=== PATIENT | male | born 1945 | race African-American/Black ===

== ENCOUNTER 2017-05-03 20:00 | Inpatient (IN) | payer MEDICARE ==
--- NOTE | 2017-05-03 20:15 | ER Document Report ---
ED Fall <ALEXIS GUEVARA - Last Filed: 05/03/17 23:06> - General Mode of Arrival: Medic Information source: Patient, Relative - daughter ignacia at [phone] TRAVEL OUTSIDE OF THE [place] IN LAST 30 DAYS: No <EDGAR REINA - Last Filed: 05/04/17 00:30> - General Stated Complaint: FALL,BACK PAIN Time Seen by Provider: 05/03/17 20:14 Notes: 71-year-old male brought in by ambulance due to up to 10 falls since Saturday. I spoke at length with his daughter Ignacia because he has increasing, confusion, disorientation, altered mental status since Saturday. He was hospitalized at [facility] in March for rhabdomyolysis and confusion. The patient left AMA. His [facility] provider discharged him from his practice and he does not have a new doctor. The caregiver that has been going to the house several hours a day says that he has basically not gotten off the sofa and not eaten since Saturday. His daughter Nancy is driving from [place] and her phone number is [phone]. No known dementia. Past medical history is kidney stones, rheumatoid arthritis , peripheral neuropathy to hands and feet, diabetes, hypertension, DC, coronary stents, stage III colon cancer with partial colectomy, TIA and a small spot on the brain 8 or 9 years ago. he is oriented to his name and date of only and knows he is in the hospital, but does not know date, time. EMS had been out to his house several times since Saturday but he was refusing transport because he never wanted to go back to [facility]. ( EDGAR REINA) - Related data Allergies/Adverse Reactions: Penicillins Allergy (Verified 02/08/16 14:50) Home Medications: Current Home Medications Bupropion HCl [Bupropion HCl Sr] 150 mg PO Q12 05/03/17 [History] Carvedilol [Coreg 6.25 mg Tablet] 6.25 mg PO Q12 05/03/17 [History] Clopidogrel Bisulfate [Plavix 75 mg Tablet] 75 mg PO DAILY 05/03/17 [History] Duloxetine HCl [Cymbalta] 60 mg PO DAILY 05/03/17 [History] Gabapentin [Neurontin 300 mg Capsule] 900 mg PO Q8 05/03/17 [History] Hydralazine HCl [Apresoline 25 mg Tablet] 25 mg PO QPM 05/03/17 [History] Insulin Regular, Human [Humulin R (Pyxis) Insulin 100 Unit/ml 3Ml] 120 unit SUBCUT TID 05/03/17 [History] Irbesartan [Avapro] 300 mg PO DAILY 05/03/17 [History] Metformin HCl [Glucophage] 1,000 mg PO BIDBS 05/03/17 [History] Methotrexate Sodium [Methotrexate] 10 mg PO .QWEEKLY 05/03/17 [History] Pravastatin Sodium [Pravachol] 40 mg PO DAILY 05/03/17 [History] Spironolactone [Aldactone] 50 mg PO DAILY 05/03/17 [History] Tramadol HCl [Ultram 50 mg Tablet] 50 mg PO Q12HP PRN 05/03/17 [History] Trazodone HCl [Desyrel] 100 mg PO HSP PRN 05/03/17 [History] Past Medical History - General Information source: Patient, Relative - Social History Smoking Status: Never Smoker Frequency of alcohol use: None Drug Abuse: None Occupation: retired Lives with: Alone - with cats Family History: Reviewed & Not Pertinent - Past Medical History Cardiac Medical History: Reports: Hx Congestive Heart Failure, Hx Coronary Artery Disease, Hx Heart Attack, Hx Hypertension Endocrine Medical History: Reports: Hx Diabetes Mellitus Type 2 - Patient is unable to tell me which type of diabetes he has. Renal/ Medical History: Reports: Hx Kidney Stones Malignancy Medical History: Reports Hx Colorectal Cancer Musculoskeltal Medical History: Reports Hx Arthritis Psychiatric Medical History: Reports: Hx Depression Past Surgical History: Reports: Hx Bowel Surgery - bowel resection, Hx Cardiac Catheterization, Hx Cardiac Surgery - stents <EDGAR REINA - Last Filed: 05/04/17 00:30> Review of Systems - Review of Systems Constitutional: No symptoms reported EENT: No symptoms reported Cardiovascular: No symptoms reported Respiratory: No symptoms reported Gastrointestinal: No symptoms reported Genitourinary: No symptoms reported Male Genitourinary: No symptoms reported Musculoskeletal: No symptoms reported Skin: No symptoms reported Hematologic/Lymphatic: No symptoms reported Neurological/Psychological: See HPI <EDGAR REINA - Last Filed: 05/04/17 00:30> Physical Exam <ALEXIS GUEVARA - Last Filed: 05/03/17 23:06> - Vital signs Interpretation: Hypoxic - 4lpom nc pulse ox to 95% - General General appearance: Other - agitated, picking at things - HEENT Head: Normocephalic, Atraumatic Eyes: Normal Conjunctiva: Normal Pupils: PERRL Tympanic membrane: Normal Mucous membranes: Dry Pharynx: Normal Neck: Supple - non tender - Respiratory Respiratory status: No respiratory distress Chest status: Nontender Breath sounds: Rales - fine lewis bases Chest palpation: Normal - Cardiovascular Rhythm: Regular Heart sounds: Normal auscultation Murmur: No - Abdominal Inspection: Normal Distension: No distension Bowel sounds: Normal Tenderness: Nontender. No: Tender Organomegaly: No organomegaly - Back Back: Normal, Nontender - Extremities General upper extremity: Normal inspection, Nontender, Normal color, Normal ROM , Normal temperature General lower extremity: Normal inspection, Nontender, Normal color, Normal ROM , Normal temperature, Normal weight bearing. No: Gabriella's sign Elbow: Abrasion - with bruise left olecranon Knee: Other - anterior knees abrasions - Neurological Neuro grossly intact: Yes Cognition: Inattentive Orientation: Disoriented to place, Disoriented to time, Disoriented to events Gentry Coma Scale Eye Opening: Spontaneous Kaiser Coma Scale Verbal: Inappropriate - says his is gabapentin Gentry Coma Scale Motor: Obeys Commands Gentry Coma Scale Total: 13 Speech: Normal Motor strength normal: LUE, RUE, LLE, RLE Additional motor exam normals: Equal dye weigher Sensory: Normal - Psychological Associated symptoms: Agitated - Skin Skin Temperature: Warm Skin Moisture: Dry Skin Color: Normal <EDGAR REINA - Last Filed: 05/04/17 00:30> - Vital signs Vitals: Resp 22 H 05/03/17 20:25 - Neurological Notes: takes a while to follow commands (DEGAR REINA) - Skin Notes: see above (EDGAR REINA) Course - Laboratory Result Diagrams: 05/03/17 20:25 05/03/17 20:25 <ALEXIS GUEVARA - Last Filed: 05/03/17 23:06> - Laboratory Result Diagrams: 05/03/17 20:25 05/03/17 20:25 <EDGAR REINA - Last Filed: 05/04/17 00:30> - Re-evaluation Re-evalutation: 05/03/17 23:09 dr keenan will admit to IMCU admission. pulse ox 94% with 4lpm NC, hypoxic on abg , renal insufficiency dehydration, hyperglycemic (EDGAR REINA) - Vital Signs Vital signs: Temp Pulse Resp BP Pulse Ox 20 156/75 H 95 05/03/17 23:01 05/03/17 22:50 05/03/17 23:01 - Laboratory Laboratory results interpreted by me: 05/03/17 05/03/17 05/03/17 20:25 20:25 20:25 RDW 16.3 H Plt Count 121 L Lymphocytes % (Manual) 7 L Carbonic Acid ABG pCO2 ABG pO2 ABG HCO3 ABG Total CO2 ABG O2 Saturation Sodium 128.7 L Carbon Dioxide 19 L BUN 51 H Creatinine 1.47 H Est GFR ( Amer) 57 L Est GFR (Non-Af Amer) 47 L Glucose 343 H Calcium 8.2 L Creatine Kinase 448 H CK-MB (CK-2) 13.20 H Total Protein 6.0 L Albumin 3.3 L Urine Glucose (UA) Urine Ketones Urine Blood 05/03/17 05/03/17 20:25 21:26 RDW Plt Count Lymphocytes % (Manual) Carbonic Acid 0.95 L ABG pCO2 31.5 L ABG pO2 63.6 L ABG HCO3 19.9 L ABG Total CO2 20.8 L ABG O2 Saturation 93.0 L Sodium Carbon Dioxide BUN Creatinine Est GFR ( Amer) Est GFR (Non-Af Amer) Glucose Calcium Creatine Kinase CK-MB (CK-2) Total Protein Albumin Urine Glucose (UA) >=500 H Urine Ketones TRACE H Urine Blood MODERATE H Discharge <ALEXIS GUEVARA - Last Filed: 05/03/17 23:06> - Discharge Admitting Provider: Hospitalist Unit Admitted: IMCU <EDGAR REINA - Last Filed: 05/04/17 00:30> - Discharge Clinical Impression: Acute renal insufficiency, Dehydration, hyperglycemic, Hypoxia, abrasions to lewis knees, left elbow Altered mental status Qualifiers: Altered mental status type: unspecified Qualified Code(s): R41.82 - Altered mental status, unspecified Disposition: ADMITTED INPATIENT
[2017-05-03] MEDS ORDERED: NORMAL SALINE 1000 ML 1,000 ML IV ONE ×3 (20:42→23:19)
[2017-05-03] MEDS ORDERED: NORMAL SALINE 1000 ML 500 ML IV ONE (20:42)
[2017-05-03 21:02] LABS: INTERNATIONAL RATION (INR) 0.98; PROTHROMBIN TIME 13.7 SEC (11.4-15.4)
[2017-05-03 21:03] LABS: PARTIAL THROMBOPLASTIN TIME 31.5 SEC (23.5-35.8)
[2017-05-03 21:04] LABS: HEMATOCRIT 39.2 % (37.9-51.0); HEMOGLOBIN 13.5 g/dL (13.5-17.0); MEAN CORPUSCULAR HGB CONC 34.5 g/dL (32.0-36.0); MEAN CORPUSCULAR VOLUME 90 fl (80-97); PLATELET COUNT 121 10^3/uL (150-450); RED BLOOD COUNT 4.36 10^6/uL (4.35-5.55); RED CELL DISTRIBUTION WIDTH 16.3 % (11.5-14.0); WHITE BLOOD COUNT 6.2 10^3/uL (4.0-10.5)
[2017-05-03 21:14] LABS: ALANINE AMINOTRANSFERASE 46 U/L (21-72); ALBUMIN 3.3 g/dL (3.5-5.0); ALCOHOL < 10 mg/dL (NONE DETECTED); ALKALINE PHOSPHATASE 80 U/L (38-126); ANION GAP 12 (5-19); ASPARTATE AMINO TRANSFERASE 28 U/L (17-59); BILIRUBIN,DIRECT 0.3 mg/dL (0.0-0.4); BILIRUBIN,TOTAL 0.5 mg/dL (0.2-1.3); BLOOD UREA NITROGEN 51 mg/dL (7-20); CALCIUM 8.2 mg/dL (8.4-10.2); CARBON DIOXIDE 19 mmol/L (22-30); CHLORIDE 98 mmol/L (98-107); CREATINE KINASE 448 U/L (55-170); GLUCOSE 343 mg/dL (75-110); MAGNESIUM 1.9 mg/dL (1.6-2.3); POTASSIUM 4.9 mmol/L (3.6-5.0); SODIUM 128.7 mmol/L (137-145)
[2017-05-03 21:30] LABS: ABSOLUTE LYMPHOCYTES# (MANUAL) 0.7 10^3/uL (0.5-4.7); ABSOLUTE MONOCYTES # (MANUAL) 0.3 10^3/uL (0.1-1.4); ANISOCYTOSIS 1+; BAND NEUTROPHILS % (MANUAL) 3 % (3-5); BASOPHILS % (MANUAL) 0 % (0-2); EOSINOPHILS % (MANUAL) 3 % (0-6); LYMPHOCYTES % (MANUAL) 7 % (13-45); MONOCYTES % (MANUAL) 5 % (3-13); PLATELET COMMENT ADEQUATE; SEGMENTED NEUTROPHILS % (MAN) 78 % (42-78); TOTAL CELLS COUNTED 100; TROPONIN I < 0.012 ng/mL
--- NOTE | 2017-05-03 21:40 | RADIOLOGY REPORT (SQ) ---
EXAM DESCRIPTION: CT HEAD WITHOUT COMPLETED DATE/TIME: 05/03/2017 9:28 pm REASON FOR STUDY: altered mental status COMPARISON: 02/08/2016 TECHNIQUE: Axial images acquired through the brain without intravenous contrast. Images reviewed wi th bone, brain and subdural windows. Images stored on PACS. All CT scanners at this facility use dose modulation, iterative reconstruction, and/or weight based d osing when appropriate to reduce radiation dose to as low as reasonably achievable (ALARA). [facility]: Dose Right [facility]: CareDose [facility]: Dose Right [facility]: Teradose 4D [facility]: Smart [employer] RADIATION DOSE: CT Rad equipment meets quality standard of care and radiation dose reduction techniq ues were employed. CTDIvol: 64.6 mGy. DLP: 1267 mGy-cm. mGy. LIMITATIONS: None. FINDINGS: VENTRICLES: Age-appropriate. CEREBRUM: No masses. No hemorrhage. No midline shift. Similar Areas of low density in the white ma tter due to chronic ischemic change. No evidence for acute infarction. CEREBELLUM: No masses. No hemorrhage. No alteration of density. No evidence for acute infarction. EXTRAAXIAL SPACES: Mild age-related involutional change. No fluid collections. No masses. ORBITS AND GLOBE: No intra- or extraconal masses. Normal contour of globe without masses. CALVARIUM: No fracture. PARANASAL SINUSES: No fluid or mucosal thickening. SOFT TISSUES: No mass or hematoma. OTHER: No other significant finding. IMPRESSION: No acute intracranial findings. EVIDENCE OF ACUTE STROKE: NO. TECHNICAL DOCUMENTATION: JOB ID: [id number] [place]-72 Quality ID # [id number]: Final reports with documentation of one or more dose reduction techniques (e.g., Au tomated exposure control, adjustment of the mA and/or kV according to patient size, use of iterative reconstruction technique) 2010 [employer]- All Rights Reserved
--- NOTE | 2017-05-03 21:41 | RADIOLOGY REPORT (SQ) ---
EXAM DESCRIPTION: CHEST SINGLE VIEW COMPLETED DATE/TIME: 05/03/2017 9:31 pm REASON FOR STUDY: altered mental status COMPARISON: 02/08/2016 EXAM PARAMETERS: NUMBER OF VIEWS: One view. TECHNIQUE: Single frontal radiographic view of the chest acquired. RADIATION DOSE: NA LIMITATIONS: None. FINDINGS: LUNGS AND PLEURA: Patchy airspace opacities are present in both lung bases, left greater t harris right. No significant effusion. No pneumothorax. MEDIASTINUM AND HILAR STRUCTURES: Stable. HEART AND VASCULAR STRUCTURES: Stable cardiomegaly. BONES: No acute findings. HARDWARE: None in the chest. OTHER: No other significant finding. IMPRESSION: Patchy airspace opacities are present in both lung bases, left greater than right. TECHNICAL DOCUMENTATION: JOB ID: [id number] [place]-72 2010 [employer]- All Rights Reserved
[2017-05-03 21:56] LABS: ARTERIAL BLOOD BASE EXCESS -3.6 mmol/L; ARTERIAL BLOOD FIO2 3.5L; ARTERIAL BLOOD H2CO3 0.95 mmol/L (1.05-1.35); ARTERIAL BLOOD HCO3 19.9 mmol/L (20-26); ARTERIAL BLOOD PCO2 31.5 mmHg (35-45); ARTERIAL BLOOD PH 7.42 (7.35-7.45); ARTERIAL BLOOD PO2 63.6 mmHg (80-100); ARTERIAL BLOOD TOTAL CO2 20.8 mmol/L (23-27)
[2017-05-03] MEDS ORDERED: CEFTRIAXONE 1 GM/D5W RTU 1 GM/50 ML RTUPB IV ONE (22:14)
[2017-05-03 22:33] LABS: APPEARANCE,URINE CLEAR; BILIRUBIN,URINE NEGATIVE (NEGATIVE); COLOR,URINE YELLOW; GLUCOSE, URINE >=500 mg/dL (NEGATIVE); KETONES,URINE TRACE mg/dL (NEGATIVE); LEUKOCYTE ESTERASE,URINE NEGATIVE (NEGATIVE); NITRITE,URINE NEGATIVE (NEGATIVE); PROTEIN,URINE NEGATIVE (NEGATIVE); URINE SPECIFIC GRAVITY 1.021; UROBILINOGEN,URINE NEGATIVE mg/dL (<2.0)
[2017-05-03 22:39] LABS: URINE AMPHETAMINES SCREEN NEGATIVE; URINE BARBITURATES SCREEN NEGATIVE; URINE BENZODIAZEPINES SCREEN NEGATIVE; URINE COCAINE SCREEN NEGATIVE; URINE MARIJUANA (THC) SCREEN NEGATIVE; URINE METHADONE SCREEN NEGATIVE; URINE PHENCYCLIDINE SCREEN NEGATIVE
[2017-05-03] MEDS ORDERED: PHARMACY COMMUNICATION ORDER MC NR (23:15)
[2017-05-03] MEDS ORDERED: LEVALBUTEROL HCL NEB 1.25 MG/3 ML AMPUL NEB PRN (23:15)
[2017-05-03] MEDS ORDERED: DEXTROSE 50%-WATER 25 GM/50 ML DISP.SYRIN IV PRN ×2 (23:21)
[2017-05-03] MEDS ORDERED: GLUCAGON,HUMAN RECOMB 1 MG INJ IM PRN (23:21)
[2017-05-03] MEDS ORDERED: DEXTROSE 40% GEL 15 GM TUBE PO PRN ×2 (23:21)
[2017-05-03] MEDS ORDERED: (PENDING PHARMACY ID) (Trazodone Hcl [Desyrel] 100 MG) PO PRN (23:22)
[2017-05-03] MEDS ORDERED: LIDOCAINE 2% URO-JET 5 ML KIT MM ONE (23:23)
[2017-05-03] MEDS ORDERED: LORAZEPAM INJ 2 MG/1 ML VIAL IV ONE (23:39)
[2017-05-03] MEDS ORDERED: HYDRALAZINE HCL INJ/PF 20 MG/1 ML SDV IV PRN (23:40)
[2017-05-04] MEDS ORDERED: INSULIN GLARGINE,HUM.REC.ANLOG 1,000 UNIT/10 ML UNIT SUBCUT ONE (00:15)
--- NOTE | 2017-05-04 00:19 | PDOC H&P ---
History of Present Illness Admission Date/PCP: 05/03/17 23:25 Dr. Mendoza History of Present Illness: FABI MEJIA is a 71 year old male with a past medical history of diabetes mellitus, hypertension, hyper lipidemia, CVA, colon cancer who presents to the emergency department with falls. Patient has been suffering from difficulties with his memory since at least and was apparently admitted at one time to [facility] but signed himself out AGAINST MEDICAL ADVICE. History is primarily obtained to his from his daughter who is present at bedside. She is coming from out of town. Patient is unable to provide me with much history as he is quite encephalopathic when I see him. Patient's medications are currently undergoing reconciliation. Current list is automatically generated by [employer] and does not reflect an accurate description of his medications. Due to the urgent/emergent nature of his condition, he is admitted without a full list. Past Medical History Cardiac Medical History: Reports: Congestive Heart Failure, Coronary Artery Disease, Hyperlipidema, Hypertension Neurological Medical History: Reports: Ischemic CVA Endocrine Medical History: Reports: Diabetes Mellitus Type 2, Obesity Renal/ Medical History: Reports: Chronic Kidney Disease, Nephrolithiasis Malignancy Medical History: Reports: Colorectal Cancer GI Medical History: Reports: Gastroesophageal Reflux Disease Musculoskeltal Medical History: Reports: Arthritis Skin Medical History: Reports: Psoriasis Psychiatric Medical History: Reports: Depression Past Surgical History Past Surgical History: Reports: Cardiac Catheterization, Other - Partial colon resection Social History Smoking Status: Former Smoker Frequency of Alcohol Use: None Hx Recreational Drug Use: No Hx Prescription Drug Abuse: No - Advance Directive Resuscitation Status: Do Not Resuscitate Surrogate healthcare decision maker:: Carole Mejia, daughter Family History Family History: CAD, Malignancy Parental Family History Reviewed: Yes Children Family History Reviewed: Yes Sibling(s) Family History Reviewed.: Yes Medication/Allergy Home Medications: Bupropion HCl [Bupropion HCl Sr] 150 mg PO Q12 05/03/17 Carvedilol [Coreg 6.25 mg Tablet] 6.25 mg PO Q12 05/03/17 Clopidogrel Bisulfate [Plavix 75 mg Tablet] 75 mg PO DAILY 05/03/17 Duloxetine HCl [Cymbalta] 60 mg PO DAILY 05/03/17 Gabapentin [Neurontin 300 mg Capsule] 900 mg PO Q8 05/03/17 Hydralazine HCl [Apresoline 25 mg Tablet] 25 mg PO QPM 05/03/17 Insulin Regular, Human [Humulin R (Pyxis) Insulin 100 Unit/ml 3Ml] 120 unit SUBCUT TID 05/03/17 Irbesartan [Avapro] 300 mg PO DAILY 05/03/17 Metformin HCl [Glucophage] 1,000 mg PO BIDBS 05/03/17 Methotrexate Sodium [Methotrexate] 10 mg PO .QWEEKLY 05/03/17 Pravastatin Sodium [Pravachol] 40 mg PO DAILY 05/03/17 Spironolactone [Aldactone] 50 mg PO DAILY 05/03/17 Tramadol HCl [Ultram 50 mg Tablet] 50 mg PO Q12HP PRN 05/03/17 Trazodone HCl [Desyrel] 100 mg PO HSP PRN 05/03/17 Allergies/Adverse Reactions: Penicillins Allergy (Verified 02/08/16 14:50) Review of Systems ROS unobtainable: Due to mental status Physical Exam Vital Signs: Temp Pulse Resp BP Pulse Ox 20 156/75 H 95 05/03/17 23:01 05/03/17 22:50 05/03/17 23:01 General appearance: PRESENT: mild distress, obese, well-developed Head exam: PRESENT: atraumatic, normocephalic Eye exam: PRESENT: conjunctiva pink, EOMI. ABSENT: conjunctival injection, PERRLA, scleral icterus Ear exam: PRESENT: normal external ear exam, TM's normal bilaterally Mouth exam: PRESENT: dry mucosa Teeth exam: PRESENT: edentulous Neck exam: ABSENT: carotid bruit, JVD, lymphadenopathy, thyromegaly, tracheal deviation Respiratory exam: PRESENT: accessory muscle use, prolonged expiratory phas, rhonchi, symmetrical, tachypnea, unlabored, wheezes. ABSENT: crackles, rales, stridor Cardiovascular exam: PRESENT: RRR, +S1, +S2, systolic murmur, tachycardia. ABSENT: diastolic murmur, gallop, rubs Pulses: PRESENT: normal dorsalis pedis pul Vascular exam: PRESENT: normal capillary refill GI/Abdominal exam: PRESENT: distended, hypoactive bowel sounds, normal bowel sounds, soft. ABSENT: firm, guarding, hernia, mass, Vu's sign, organolmegaly, rebound, rigid, tenderness Rectal exam: PRESENT: deferred Gentrourinary exam: ABSENT: ecchymosis, scrotal swelling, urethral discharge Extremities exam: PRESENT: full ROM, +1 edema. ABSENT: calf tenderness, clubbing Musculoskeletal exam: PRESENT: ambulatory Neurological exam: PRESENT: alert, altered, awake, oriented to person, ataxia, CN II-XII grossly intact, other - Word finding. ABSENT: oriented to place, oriented to time, oriented to situation, motor sensory deficit Psychiatric exam: PRESENT: agitated, anxious, unusual affect Focused psych exam: PRESENT: restlessness Skin exam: PRESENT: abrasion - Bilateral knees, dry, warm. ABSENT: cyanosis, rash Results Laboratory Results: 05/03/17 05/03/17 05/03/17 20:25 20:25 20:25 WBC 6.2 Hgb 13.5 Hct 39.2 Plt Count 121 L INR 0.98 ABG pH ABG pCO2 ABG pO2 ABG HCO3 Sodium 128.7 L Potassium 4.9 Chloride 98 Carbon Dioxide 19 L BUN 51 H Creatinine 1.47 H Est GFR (Non-Af Amer) 47 L Glucose 343 H Lactic Acid Calcium 8.2 L Magnesium 1.9 Total Bilirubin 0.5 AST 28 ALT 46 Alkaline Phosphatase 80 Creatine Kinase 448 H CK-MB (CK-2) Troponin I Total Protein 6.0 L Albumin 3.3 L Ur Specific Candor Urine Glucose (UA) Urine Ketones Urine Blood Urine RBC (Auto) Urine Mucus (Auto) Serum Alcohol < 10 05/03/17 05/03/17 05/03/17 20:25 20:25 20:25 WBC Hgb Hct Plt Count INR ABG pH 7.42 ABG pCO2 31.5 L ABG pO2 63.6 L ABG HCO3 19.9 L Sodium Potassium Chloride Carbon Dioxide BUN Creatinine Est GFR (Non-Af Amer) Glucose Lactic Acid 1.2 Calcium Magnesium Total Bilirubin AST ALT Alkaline Phosphatase Creatine Kinase CK-MB (CK-2) 13.20 H Troponin I < 0.012 Total Protein Albumin Ur Specific Candor Urine Glucose (UA) Urine Ketones Urine Blood Urine RBC (Auto) Urine Mucus (Auto) Serum Alcohol 05/03/17 21:26 WBC Hgb Hct Plt Count INR ABG pH ABG pCO2 ABG pO2 ABG HCO3 Sodium Potassium Chloride Carbon Dioxide BUN Creatinine Est GFR (Non-Af Amer) Glucose Lactic Acid Calcium Magnesium Total Bilirubin AST ALT Alkaline Phosphatase Creatine Kinase CK-MB (CK-2) Troponin I Total Protein Albumin Ur Specific Candor 1.021 Urine Glucose (UA) >=500 H Urine Ketones TRACE H Urine Blood MODERATE H Urine RBC (Auto) 11 Urine Mucus (Auto) RARE Serum Alcohol Impressions: Head CT 05/03/17 20:31 IMPRESSION: No acute intracranial findings. EVIDENCE OF ACUTE STROKE: NO. Chest X-Ray 05/03/17 20:37 IMPRESSION: Patchy airspace opacities are present in both lung bases, left greater than right. Status: Imported from PACS Assessment & Plan - Diagnosis (1) Acute metabolic encephalopathy Is this a current diagnosis for this admission?: Yes Plan: Ativan 1 and if this is ineffective will attempt Haldol. Likely secondary to underlying pneumonia and hypoxemia likely complicated by previously undiagnosed dementia (2) Acute hypoxemic respiratory failure Is this a current diagnosis for this admission?: Yes Plan: Oxygen as needed and will use BiPAP if required (3) Hyponatremia Is this a current diagnosis for this admission?: Yes Plan: Likely secondary to intravascular volume depletion. Will monitor as it is repleted (4) Bilateral pneumonia Qualifiers: Pneumonia type: due to unspecified organism Lung location: lower lobe of lung Qualified Code(s): J18.9 - Pneumonia, unspecified organism Is this a current diagnosis for this admission?: Yes Plan: Likely community-acquired pneumonia, initiated on Rocephin and levaquin Place patient on scheduled nebulized treatments and re-evaluate for improvement. PRN Xopenex Obtain sputum culture (5) CHF (congestive heart failure) Qualifiers: Congestive heart failure type: unspecified congestive heart failure type Congestive heart failure chronicity: chronic Qualified Code(s): I50.9 - Heart failure, unspecified Is this a current diagnosis for this admission?: Yes Plan: Will be judicious with fluid administration Will obtain echocardiogram (6) Chronic kidney disease (CKD) Qualifiers: Chronic kidney disease stage: stage 3 (moderate) Qualified Code(s): N18.3 - Chronic kidney disease, stage 3 (moderate) Is this a current diagnosis for this admission?: Yes Plan: Patient's baseline creatinine was approximately 1.3 two years ago. (7) Coronary artery disease Qualifiers: Coronary Disease-Associated Artery/Lesion type: [place] artery [place] vs. transplanted heart: [place] heart Associated angina: angina presence unspecified Qualified Code(s): I25.10 - Atherosclerotic heart disease of [place] coronary artery without angina pectoris Is this a current diagnosis for this admission?: Yes (8) Diabetes Qualifiers: Diabetes mellitus type: type 2 Diabetes mellitus complication status: with neurologic complications Diabetes mellitus complication detail: with polyneuropathy Diabetes mellitus termination clerk insulin use: with fdc use Qualified Code(s): E11.42 - Type 2 diabetes mellitus with diabetic polyneuropathy; Z79.4 - [facility] (current) use of insulin; Z79.4 - [facility] ( current) use of insulin; Z79.4 - marine oil terminal superintendent (current) use of insulin; Z79.4 - marine oil terminal superintendent (current) use of insulin Is this a current diagnosis for this admission?: Yes Plan: Place patient on sliding scale insulin and Lantus. ADA diet Check A1c (9) Diabetic neuropathy Qualifiers: Diabetes mellitus type: type 2 Diabetes mellitus complication detail: diabetic polyneuropathy Qualified Code(s): E11.42 - Type 2 diabetes mellitus with diabetic polyneuropathy Is this a current diagnosis for this admission?: Yes Plan: Renally a dose just of Neurontin (10) Hyperlipidemia Qualifiers: Hyperlipidemia type: unspecified Qualified Code(s): E78.5 - Hyperlipidemia , unspecified Is this a current diagnosis for this admission?: Yes (11) Hypertension Qualifiers: Hypertension type: essential hypertension Qualified Code(s): I10 - Essential (primary) hypertension Is this a current diagnosis for this admission?: Yes Plan: Hold patient's ARB in light of his mild acute renal failure. Continue Coreg and add as needed hydralazine (12) Psoriatic arthritis Is this a current diagnosis for this admission?: Yes - Time Time Spent: 30 to 50 Minutes Medications reviewed and adjusted accordingly: Yes Anticipated discharge: Other Within: Other - Upon improvement of symptomatology - Inpatient Certification Based on my medical assessment, after consideration of the patient's comorbidities, presenting symptoms, or acuity I expect that the services needed warrant INPATIENT care.: Yes I certify that my determination is in accordance with my understanding of Medicare's requirements for reasonable and necessary INPATIENT services [42 CFR 412.3e].: Yes Medical Necessity: Need For IV Fluids, Need For Continuous Telemetry Monitoring , Need for Nebulizer Therapy and Monitoring of Response, Need for IV Antibiotics Post Hospital Care: D/C Machine Joint Cutter Documentation
[2017-05-04] MEDS ORDERED: HALOPERIDOL LACTATE INJ 5 MG/1 ML VIAL IV ONE (00:56)
[2017-05-04] MEDS ORDERED: DIPHENHYDRAMINE HCL 50 MG/ML VIAL IV ONE (00:56)
[2017-05-04] MEDS ORDERED: DIPHENHYDRAMINE HCL 50 MG/ML VIAL ONE (00:59)
[2017-05-04] MEDS ORDERED: LEVOFLOXACIN 500 MG/D5W RTU 500 MG/100 ML RTUPB IV ONE (01:00)
[2017-05-04] MEDS: IPRATROPIUM/ALBUTEROL 0.5-2.5 MG/3 ML AMPUL NEB SCH ×4 (01:51→20:02)
[2017-05-04] MEDS ORDERED: OLANZAPINE INJ/PF 10 MG SDV IM ONE ×4 (02:15→23:00)
[2017-05-04] MEDS ORDERED: MORPHINE SULFATE 10 MG/ML INJ ONE (02:39)
[2017-05-04] MEDS ORDERED: MORPHINE SULFATE 10 MG/ML INJ IV ONE ×2 (04:00→23:14)
[2017-05-04] MEDS ORDERED: ACETAMINOPHEN 325 MG SUPP.RECT PR ONE (04:46)
[2017-05-04] MEDS: ACETAMINOPHEN 325 MG SUPP.RECT PR PRN ×2 (04:50→22:14)
[2017-05-04] MEDS: HEPARIN SOD (PORCINE) 5,000 UNIT/ML 1 ML SYRINGE SUBCUT SCH ×2 (05:24→16:18)
--- NOTE | 2017-05-04 05:54 | EKG REPORT ---
SEVERITY:- ABNORMAL ECG - SINUS RHYTHM RIGHT BUNDLE BRANCH BLOCK : Confirmed by: Ary Snowden 04-May-2017 05:53:43
[2017-05-04] MEDS: NORMAL SALINE 1000 ML 1,000 ML IV PRN ×2 (06:30→19:51)
[2017-05-04 07:37] LABS: ABSOLUTE BASOPHILS # (AUTO) 0.1 10^3/uL (0.0-0.2); ABSOLUTE EOSINOPHILS # (AUTO) 0.2 10^3/uL (0.0-0.6); ABSOLUTE LYMPHOCYTES (AUTO) 0.6 10^3/uL (0.5-4.7); ABSOLUTE MONOCYTES (AUTO) 0.4 10^3/uL (0.1-1.4); ABSOLUTE NEUT (AUTO) 3.9 10^3/uL (1.7-8.2); BASOPHILS % (AUTO) 1.1 % (0-2); HEMATOCRIT 36.3 % (37.9-51.0); HEMOGLOBIN 12.1 g/dL (13.5-17.0); MEAN CORPUSCULAR HEMOGLOBIN 30.2 pg (27.0-33.4); MEAN CORPUSCULAR HGB CONC 33.3 g/dL (32.0-36.0); MEAN CORPUSCULAR VOLUME 91 fl (80-97); PLATELET COUNT 117 10^3/uL (150-450); RED BLOOD COUNT 4.01 10^6/uL (4.35-5.55); RED CELL DISTRIBUTION WIDTH 16.2 % (11.5-14.0); SEGMENTED NEUTROPHILS % (AUTO) 76.9 % (42-78); TOTAL CELLS COUNTED % (AUTO) 100 %; WHITE BLOOD COUNT 5.1 10^3/uL (4.0-10.5)
[2017-05-04 07:47] LABS: ALANINE AMINOTRANSFERASE 44 U/L (21-72); ALKALINE PHOSPHATASE 67 U/L (38-126); ANION GAP 10 (5-19); ASPARTATE AMINO TRANSFERASE 25 U/L (17-59); BILIRUBIN,DIRECT 0.1 mg/dL (0.0-0.4); BILIRUBIN,TOTAL 0.3 mg/dL (0.2-1.3); BLOOD UREA NITROGEN 48 mg/dL (7-20); CALCIUM 7.6 mg/dL (8.4-10.2); CARBON DIOXIDE 21 mmol/L (22-30); CHLORIDE 103 mmol/L (98-107); CHOLESTEROL 176.91 mg/dL (0-200); CREATINE KINASE 323 U/L (55-170); GLUCOSE 301 mg/dL (75-110); POTASSIUM 4.7 mmol/L (3.6-5.0); SODIUM 133.6 mmol/L (137-145); TOTAL PROTEIN 5.4 g/dL (6.3-8.2); TRIGLYCERIDES 324 mg/dL (<150)
[2017-05-04 07:57] LABS: DIRECT LDL 111 mg/dL (<100)
[2017-05-04 07:59] LABS: CREATINE KINASE MB 8.12 ng/mL (<4.55); TROPONIN I 0.022 ng/mL
[2017-05-04 08:02] LABS: VLDL CHOLESTEROL 64.8 mg/dL (10-31)
[2017-05-04] MEDS: HALOPERIDOL LACTATE INJ 5 MG/1 ML VIAL IV PRN ×2 (09:21→13:47)
[2017-05-04 09:52] LABS: PHOSPHORUS 4.7 mg/dL (2.5-4.5)
[2017-05-04] MEDS ORDERED: LEVOFLOXACIN 500 MG/D5W RTU 500 MG/100 ML RTUPB IV SCH (10:00)
[2017-05-04] MEDS ORDERED: CEFTRIAXONE 1 GM/D5W RTU 1 GM/50 ML RTUPB IV SCH ×2 (10:00→22:00)
[2017-05-04] MEDS: CARVEDILOL 6.25 MG TABLET PO SCH ×2 (10:56→23:00)
[2017-05-04] MEDS: GUAIFENESIN 600 MG TABLET.SA PO SCH ×2 (10:57→23:05)
[2017-05-04] MEDS: CLOPIDOGREL BISULFATE 75 MG TABLET PO SCH (10:57)
[2017-05-04] MEDS: FAMOTIDINE 20 MG TABLET PO SCH ×2 (10:57→22:59)
[2017-05-04] MEDS ORDERED: LORAZEPAM INJ 2 MG/1 ML VIAL ONE (11:00)
[2017-05-04] MEDS ORDERED: LORAZEPAM INJ 2 MG/1 ML VIAL IV ONE ×2 (11:30)
--- NOTE | 2017-05-04 13:37 | PDOC PROGRESS REPORT ---
Subjective Progress Note for:: 05/04/17 Subjective:: 71-year-old male with past medical history of Chronic kidney disease Gastroesophageal reflux disease Nephrolithiasis Obesity Psoriasis Arthritis Depression Diabetes Hypertension Hyperlipidemia Stroke Colon cancer Presented to the hospital on May 03 with frequent falls and was brought in by his daughter with confusion. Patient was combative and agitated and very confused and was unable to provide a history. He was diagnosed with metabolic encephalopathy and acute hypoxic respiratory failure due to bilateral pneumonia For his delirium he was treated with Haldol, Ativan, morphine and Zyprexa. He is a DO NOT RESUSCITATE. Reason For Visit: SEPSIS, PNEUMONIA, ACUTE METABOLIC ENCEPHALOPATHY Physical Exam Vital Signs: Temp Pulse Resp BP Pulse Ox 99.4 F 104 H 20 135/75 H 95 05/04/17 06:24 05/04/17 07:00 05/04/17 06:24 05/04/17 06:24 05/04/17 07:00 Intake & Output 05/03/17 05/04/17 05/05/17 06:59 06:59 06:59 Intake Total 703 Output Total 350 600 Balance 353 -600 Weight 109.6 kg Additional comments: Elderly gentleman sitting up in bed he keeps picking at things and is agitated. He is in four-point soft limb restraints. Hansen is present Pupils equal reactive to light no icterus normal extraocular muscle movement Moist pink oropharyngeal mucosa Lungs: He has decreased breath sounds in the bases bilaterally and scattered rhonchi no crackles heard Cardiac: S1-S2 regular, tachycardic, no peripheral edema no cyanosis no calf tenderness Abdomen: Soft, normal bowel sounds, no focal tenderness Skin: Warm and dry Neurologic: Awake and alert oriented to self only moves all 4 extremities. No facial droop. Results Laboratory Results: 05/04/17 07:14 05/04/17 07:14 05/04/17 05/04/17 05/04/17 01:29 07:14 07:14 WBC 5.1 RBC 4.01 L Hgb 12.1 L Hct 36.3 L MCV 91 MCH 30.2 MCHC 33.3 RDW 16.2 H Plt Count 117 L Seg Neutrophils % 76.9 Lymphocytes % 12.0 L Monocytes % 7.0 Eosinophils % 3.0 Basophils % 1.1 Absolute Neutrophils 3.9 Absolute Lymphocytes 0.6 Absolute Monocytes 0.4 Absolute Eosinophils 0.2 Absolute Basophils 0.1 Sodium 133.6 L Potassium 4.7 Chloride 103 Carbon Dioxide 21 L Anion Gap 10 BUN 48 H Creatinine 1.36 H Est GFR ( Amer) > 60 Est GFR (Non-Af Amer) 52 L Glucose 301 H Calcium 7.6 L Total Bilirubin 0.3 AST 25 ALT 44 Alkaline Phosphatase 67 Ammonia < 8.7 L Total Protein 5.4 L Albumin 3.0 L Triglycerides 324 H Cholesterol 176.91 LDL Cholesterol Direct 111 H VLDL Cholesterol 64.8 H HDL Cholesterol 23 L 05/04/17 05/04/17 05/04/17 01:29 07:14 07:14 Creatine Kinase 323 H CK-MB (CK-2) 8.12 H Troponin I < 0.012 0.022 Impressions: Head CT 05/03/17 20:31 IMPRESSION: No acute intracranial findings. EVIDENCE OF ACUTE STROKE: NO. Chest X-Ray 05/03/17 20:37 IMPRESSION: Patchy airspace opacities are present in both lung bases, left greater than right. Assessment & Plan - Diagnosis (2) Acute hypoxemic respiratory failure Is this a current diagnosis for this admission?: Yes (3) Acute metabolic encephalopathy Is this a current diagnosis for this admission?: Yes (4) Bilateral pneumonia Qualifiers: Pneumonia type: due to unspecified organism Lung location: lower lobe of lung Qualified Code(s): J18.9 - Pneumonia, unspecified organism Is this a current diagnosis for this admission?: Yes (6) Hyponatremia Is this a current diagnosis for this admission?: Yes (7) CHF (congestive heart failure) Qualifiers: Congestive heart failure type: unspecified congestive heart failure type Congestive heart failure chronicity: chronic Qualified Code(s): I50.9 - Heart failure, unspecified Is this a current diagnosis for this admission?: Yes (8) Chronic kidney disease (CKD) Qualifiers: Chronic kidney disease stage: stage 3 (moderate) Qualified Code(s): N18.3 - Chronic kidney disease, stage 3 (moderate) Is this a current diagnosis for this admission?: Yes (9) Diabetes Qualifiers: Diabetes mellitus type: type 2 Diabetes mellitus complication status: with neurologic complications Diabetes mellitus complication detail: with polyneuropathy Diabetes mellitus longterm insulin use: with intermediate frame tender use Qualified Code(s): E11.42 - Type 2 diabetes mellitus with diabetic polyneuropathy; Z79.4 - intermediate frame tender (current) use of insulin; Z79.4 - intermediate frame tender ( current) use of insulin; Z79.4 - care home (current) use of insulin; Z79.4 - care home (current) use of insulin Is this a current diagnosis for this admission?: Yes (10) Hypertension Qualifiers: Hypertension type: essential hypertension Qualified Code(s): I10 - Essential (primary) hypertension Is this a current diagnosis for this admission?: Yes (11) Psoriatic arthritis Is this a current diagnosis for this admission?: Yes - Time Time Spent with patient: 35 or more minutes - Plan Summary Plan Summary: Today is day 2 of antibiotics. Continue supplemental oxygen to keep sats above 90% Use anxiolytics and behavioral interventions to help with agitation and anxiety. I spoke to his daughter Phillip briefly on the phone she is on her way to see him. She states that her father has expressed that he would like to be a full code. Those changes were made in the medical record.
[2017-05-04] MEDS: INSULIN LISPRO 100 UNIT/ML 3 ML VIAL SUBCUT PRN ×2 (13:48→22:15)
[2017-05-04] MEDS: HYDRALAZINE HCL 25 MG TABLET PO SCH (19:49)
[2017-05-04] MEDS: TAMSULOSIN HCL 0.4 MG CAP.SR.24H PO SCH (19:50)
[2017-05-04] MEDS ORDERED: INSULIN GLARGINE,HUM.REC.ANLOG 1,000 UNIT/10 ML UNIT SUBCUT SCH (22:00)
[2017-05-04] MEDS ORDERED: (PENDING PHARMACY ID) (Trazodone Hcl [Desyrel] 100 MG) PO SCH (22:00)
[2017-05-04] MEDS ORDERED: LORAZEPAM 1 MG TABLET PO SCH (22:00)
[2017-05-04] MEDS: INSULIN GLARGINE,HUM.REC.ANLOG 300 UNIT/3 ML INSULN.PEN SUBCUT SCH (22:15)
[2017-05-04] MEDS: TRAZODONE HCL 50 MG TABLET PO SCH (22:59)
--- NOTE | 2017-05-04 23:10 | EKG REPORT ---
SEVERITY:- ABNORMAL ECG - SINUS TACHYCARDIA VENTRICULAR PREMATURE COMPLEX RIGHT BUNDLE BRANCH BLOCK : Confirmed by: Ary Snowden 04-May-2017 23:09:51
[2017-05-04] MEDS ORDERED: RISPERIDONE 1 MG TABLET PO ONE (23:15)
[2017-05-05] MEDS: IPRATROPIUM/ALBUTEROL 0.5-2.5 MG/3 ML AMPUL NEB SCH ×3 (02:08→14:23)
[2017-05-05] MEDS ORDERED: MORPHINE SULFATE 10 MG/ML INJ ONE (03:25)
[2017-05-05] MEDS: HALOPERIDOL LACTATE INJ 5 MG/1 ML VIAL IV PRN ×2 (06:29→22:17)
[2017-05-05] MEDS ORDERED: VANCOMYCIN HCL 0 MG in DEXTROSE 5%-WATER 250 ML IV NR ×2 (09:15→19:00)
[2017-05-05] MEDS: LACTOBACILLUS ACIDOPHILUS 250 MG TAB PO SCH ×2 (09:55→18:31)
[2017-05-05] MEDS: CLOPIDOGREL BISULFATE 75 MG TABLET PO SCH (09:55)
[2017-05-05] MEDS: CARVEDILOL 6.25 MG TABLET PO SCH ×2 (09:55→21:16)
[2017-05-05] MEDS: FAMOTIDINE 20 MG TABLET PO SCH (09:56)
[2017-05-05] MEDS: GUAIFENESIN 600 MG TABLET.SA PO SCH ×2 (09:56→21:16)
[2017-05-05] MEDS ORDERED: LEVOFLOXACIN 750 MG/D5W RTU 750 MG/150 ML RTUPB IV SCH (10:00)
[2017-05-05] MEDS ORDERED: VANCOMYCIN HCL 2,000 MG in DEXTROSE 5%-WATER 500 ML IV SCH (11:00)
[2017-05-05] MEDS ORDERED: VANCOMYCIN HCL 2,000 MG in NORMAL SALINE 500 ML IV SCH (11:00)
[2017-05-05] MEDS ORDERED: LORAZEPAM INJ 2 MG/1 ML VIAL IV PRN (11:20)
--- NOTE | 2017-05-05 11:28 | PDOC PROGRESS REPORT ---
Subjective Progress Note for:: 05/05/17 Subjective:: 71-year-old gentleman with past medical history of Chronic kidney disease Gastroesophageal reflux disease Nephrolithiasis Obesity Psoriasis Arthritis Depression Diabetes Hypertension Hyperlipidemia Stroke Colon cancer He presented to the hospital on May 03 with frequent falls and was brought in by his daughter with confusion. He was diagnosed with metabolic encephalopathy and acute hypoxic respiratory failure due to bilateral pneumonia. He was agitated and confused and was initially treated with Haldol, Ativan, morphine and Zyprexa. The patient continues to have periods of agitation and restlessness. I spoke to his daughter yesterday and given an update on his plan of care. He is currently being treated for pneumonia. Blood cultures 1 out of 2 sets grew gram-positive cocci. Vancomycin has been added to his regimen. Due to prolonged QTC, Levaquin has been stopped. Cefepime exit site clean have been started. Would avoid QTC prolonging antipsychotic agents. We will use Ativan as needed for now. Reason For Visit: SEPSIS, PNEUMONIA, ACUTE METABOLIC ENCEPHALOPATHY Physical Exam Vital Signs: Temp Pulse Resp BP Pulse Ox 99.4 F 105 H 22 H 163/81 H 96 05/05/17 08:00 05/05/17 08:28 05/05/17 08:28 05/05/17 08:00 05/05/17 08:28 Intake & Output 05/04/17 05/05/17 05/06/17 06:59 06:59 06:59 Intake Total 703 1939 Output Total 350 1600 Balance 353 339 Weight 109.6 kg 106.9 kg Additional comments: Elderly gentleman sitting up in bed drowsy. Arousable. Follows commands. He has mild swelling of the lower lip. HEENT: Pupils equal reactive to light moist mucous vaginal mucosa, no conjunctival discharge no icterus Lungs: Scattered rhonchi bilaterally normal respiratory effort Cardiac: S1-S2 regular no peripheral edema no cyanosis no calf tenderness Abdomen: Soft, obese no focal tenderness normal bowel sounds Skin: Warm and dry next Results Laboratory Results: 05/04/17 07:14 05/04/17 07:14 05/04/17 05/04/17 05/04/17 01:29 07:14 07:14 Creatine Kinase 323 H CK-MB (CK-2) 8.12 H Troponin I < 0.012 0.022 Impressions: Head CT 05/03/17 20:31 IMPRESSION: No acute intracranial findings. EVIDENCE OF ACUTE STROKE: NO. Assessment & Plan - Diagnosis (2) Acute hypoxemic respiratory failure Is this a current diagnosis for this admission?: Yes (3) Acute metabolic encephalopathy Is this a current diagnosis for this admission?: Yes (4) Bilateral pneumonia Qualifiers: Pneumonia type: due to unspecified organism Lung location: lower lobe of lung Qualified Code(s): J18.9 - Pneumonia, unspecified organism Is this a current diagnosis for this admission?: Yes (6) Hyponatremia Is this a current diagnosis for this admission?: Yes (7) CHF (congestive heart failure) Qualifiers: Congestive heart failure type: unspecified congestive heart failure type Congestive heart failure chronicity: chronic Qualified Code(s): I50.9 - Heart failure, unspecified Is this a current diagnosis for this admission?: Yes (8) Chronic kidney disease (CKD) Qualifiers: Chronic kidney disease stage: stage 3 (moderate) Qualified Code(s): N18.3 - Chronic kidney disease, stage 3 (moderate) Is this a current diagnosis for this admission?: Yes (9) Diabetes Qualifiers: Diabetes mellitus type: type 2 Diabetes mellitus complication status: with neurologic complications Diabetes mellitus complication detail: with polyneuropathy Diabetes mellitus custodial insulin use: with custodial use Qualified Code(s): E11.42 - Type 2 diabetes mellitus with diabetic polyneuropathy; Z79.4 - terminal operator (current) use of insulin; Z79.4 - FPC ( current) use of insulin; Z79.4 - [facility] (current) use of insulin; Z79.4 - [facility] (current) use of insulin Is this a current diagnosis for this admission?: Yes (10) Hypertension Qualifiers: Hypertension type: essential hypertension Qualified Code(s): I10 - Essential (primary) hypertension Is this a current diagnosis for this admission?: Yes (11) Psoriatic arthritis Is this a current diagnosis for this admission?: Yes - Time Time Spent with patient: 35 or more minutes - Plan Summary Plan Summary: He is day 3 of antibiotics. Changes were made as noted above. Continue to follow up on cultures. Continue to use behavioral and pharmacological means to prevent and treat agitation. The patient is a full code. Portable chest x-ray was ordered. I am awaiting the images to be uploaded so I could review it. EKG showed right bundle branch block with QTC of 524 ms on April 2016.
--- NOTE | 2017-05-05 11:42 | RADIOLOGY REPORT (SQ) ---
EXAM DESCRIPTION: CHEST SINGLE VIEW COMPLETED DATE/TIME: 05/05/2017 10:29 am REASON FOR STUDY: Dyspnea COMPARISON: AP chest 05/03/2017, 02/08/2016 EXAM PARAMETERS: NUMBER OF VIEWS: One view. TECHNIQUE: Single frontal radiographic view of the chest acquired. RADIATION DOSE: NA LIMITATIONS: None. FINDINGS: LUNGS AND PLEURA: Consolidation left retrocardiac region, atelectasis versus pneumonia. Pulmonary vascular prominence is present. Trace pleural fluid bilaterally. Mild fluid overload is s uggested. No pneumothorax. MEDIASTINUM AND HILAR STRUCTURES: No masses. Contour normal. HEART AND VASCULAR STRUCTURES: Stable moderate cardiomegaly BONES: No acute findings. HARDWARE: None in the chest. OTHER: No other significant finding. IMPRESSION: Trace bilateral pleural effusions with pulmonary vascular congestion worrisome for mild fluid overload There is consolidation in the left retrocardiac region atelectasis versus pneumonia TECHNICAL DOCUMENTATION: JOB ID: [id number] [employer]- All Rights Reserved
[2017-05-05] MEDS: DOXYCYCLINE HYCLATE 100 MG in DEXTROSE 5%-WATER 250 ML IV SCH ×2 (11:58→21:12)
[2017-05-05] MEDS ORDERED: CEFEPIME 2 GM/D5W RTU 2 GM/50 ML RTUPB IV SCH (12:00)
[2017-05-05] MEDS ORDERED: FAMOTIDINE INJ/PF 20 MG/2 ML SDV IV ONE (12:45)
[2017-05-05] MEDS ORDERED: METHYLPREDNISOLONE INJ 40 MG/1 ML SDV IV ONE (12:45)
[2017-05-05] MEDS ORDERED: IPRATROPIUM/ALBUTEROL 0.5-2.5 MG/3 ML AMPUL NEB PRN (16:07)
[2017-05-05 17:05] LABS: ARTERIAL BLOOD BASE EXCESS -4.3 mmol/L; ARTERIAL BLOOD FIO2 40%; ARTERIAL BLOOD H2CO3 1.41 mmol/L (1.05-1.35); ARTERIAL BLOOD HCO3 22.3 mmol/L (20-26); ARTERIAL BLOOD O2 SATURATION 93.4 % (94-98); ARTERIAL BLOOD PCO2 46.9 mmHg (35-45); ARTERIAL BLOOD PO2 74.6 mmHg (80-100); ARTERIAL BLOOD TOTAL CO2 23.7 mmol/L (23-27)
[2017-05-05] MEDS ORDERED: FLUMAZENIL INJ 0.5 MG/5 ML VIAL IV ONE (17:14)
--- NOTE | 2017-05-05 17:20 | Progress Note ---
Provider Note Provider Note: The patient received 2 mg of IV Ativan around 1 PM. He had been sleeping mostly but then around 430 the nurse noticed that he was not awakening to sternal rub. He had been on CPAP. This was switched to BiPAP around 3 PM. Around 430 the settings were changed to increase the inspiratory pressure from 12-24. ABG shows hypercapnia pH of 7.3 1 dose of flumazenil has been ordered. He will be transferred to the intensive care unit for closer monitoring. His daughter is at the bedside and plan of care was discussed in detail. Vital signs: Temperature 99.4F Blood pressure 140/70 Heart rate 72 Satting 94% on BiPAP with FiO2 of 0.40 Patient is sleeping on BiPAP. Does not respond to sternal rub. Cardiac: S1-S2 regular no murmurs heard no peripheral edema Resp: Normal breath sounds no wheezing or crackles heard Abdomen: Soft, obese, no focal tenderness, normal bowel sounds Plan: We will give him 1 dose of flumazenil. Continue BiPAP. Monitor in ICU. Next Critical care time 45 minutes
[2017-05-05] MEDS ORDERED: FLUMAZENIL INJ 0.5 MG/5 ML VIAL ONE ×2 (17:26→17:30)
[2017-05-05 18:24] LABS: ANION GAP 11 (5-19); BLOOD UREA NITROGEN 43 mg/dL (7-20); CALCIUM 8.2 mg/dL (8.4-10.2); CARBON DIOXIDE 23 mmol/L (22-30); CHLORIDE 108 mmol/L (98-107); GLUCOSE 274 mg/dL (75-110); MAGNESIUM 2.4 mg/dL (1.6-2.3); POTASSIUM 5.1 mmol/L (3.6-5.0); SODIUM 141.7 mmol/L (137-145)
[2017-05-05] MEDS: HYDRALAZINE HCL 25 MG TABLET PO SCH (18:31)
[2017-05-05] MEDS: TAMSULOSIN HCL 0.4 MG CAP.SR.24H PO SCH (18:31)
[2017-05-05] MEDS ORDERED: MEROPENEM 1 GM VIAL IV PRN (19:03)
[2017-05-05] MEDS: ACETAMINOPHEN 325 MG SUPP.RECT PR PRN (20:55)
[2017-05-05] MEDS: INSULIN GLARGINE,HUM.REC.ANLOG 300 UNIT/3 ML INSULN.PEN SUBCUT SCH (21:10)
[2017-05-05] MEDS: FAMOTIDINE INJ/PF 20 MG/2 ML SDV IV SCH (21:13)
[2017-05-05] MEDS: TRAZODONE HCL 50 MG TABLET PO SCH (21:16)
[2017-05-05] MEDS ORDERED: MEROPENEM 1 GM in NORMAL SALINE 50 ML IV SCH (22:00)
[2017-05-05] MEDS ORDERED: OLANZAPINE INJ/PF 10 MG SDV IM SCH (22:00)
--- NOTE | 2017-05-05 22:57 | EKG REPORT ---
SEVERITY:- ABNORMAL ECG - SINUS RHYTHM RIGHT BUNDLE BRANCH BLOCK : Confirmed by: Ary Snowden 05-May-2017 22:57:24
--- NOTE | 2017-05-05 22:58 | EKG REPORT ---
SEVERITY:- ABNORMAL ECG - SINUS TACHYCARDIA RIGHT BUNDLE BRANCH BLOCK : Confirmed by: Ary Snowden 05-May-2017 22:58:05
[2017-05-05] MEDS ORDERED: DIPHENHYDRAMINE HCL 50 MG/ML VIAL ONE (23:06)
[2017-05-05] MEDS: INSULIN LISPRO 100 UNIT/ML 3 ML VIAL SUBCUT PRN (23:15)
[2017-05-05] MEDS ORDERED: DIPHENHYDRAMINE HCL 50 MG/ML VIAL IV ONE (23:27)
[2017-05-06] MEDS: HALOPERIDOL LACTATE INJ 5 MG/1 ML VIAL IV PRN ×3 (04:23→15:23)
[2017-05-06] MEDS ORDERED: DIPHENHYDRAMINE HCL 50 MG/ML VIAL ONE (05:13)
[2017-05-06 05:18] LABS: HEMATOCRIT 37.4 % (37.9-51.0); HEMOGLOBIN 12.7 g/dL (13.5-17.0); MEAN CORPUSCULAR HEMOGLOBIN 30.3 pg (27.0-33.4); MEAN CORPUSCULAR HGB CONC 34.1 g/dL (32.0-36.0); MEAN CORPUSCULAR VOLUME 89 fl (80-97); PLATELET COUNT 125 10^3/uL (150-450); RED CELL DISTRIBUTION WIDTH 16.4 % (11.5-14.0); WHITE BLOOD COUNT 5.2 10^3/uL (4.0-10.5)
[2017-05-06 05:34] LABS: ANION GAP 11 (5-19); BLOOD UREA NITROGEN 47 mg/dL (7-20); CALCIUM 8.3 mg/dL (8.4-10.2); CARBON DIOXIDE 22 mmol/L (22-30); CHLORIDE 110 mmol/L (98-107); GLUCOSE 223 mg/dL (75-110); MAGNESIUM 2.5 mg/dL (1.6-2.3); PHOSPHORUS 5.1 mg/dL (2.5-4.5); POTASSIUM 4.7 mmol/L (3.6-5.0); SODIUM 142.7 mmol/L (137-145)
[2017-05-06] MEDS: INSULIN LISPRO 100 UNIT/ML 3 ML VIAL SUBCUT PRN ×3 (05:58→22:30)
[2017-05-06] MEDS ORDERED: FUROSEMIDE INJ/PF 40 MG/4 ML SDV IV ONE (08:07)
[2017-05-06] MEDS: CARVEDILOL 6.25 MG TABLET PO SCH ×2 (10:03→22:36)
[2017-05-06] MEDS: CLOPIDOGREL BISULFATE 75 MG TABLET PO SCH (10:03)
[2017-05-06] MEDS: MEROPENEM 1 GM in NORMAL SALINE 50 ML IV SCH ×2 (10:04→17:48)
[2017-05-06] MEDS: LACTOBACILLUS ACIDOPHILUS 250 MG TAB PO SCH ×2 (10:04→17:55)
[2017-05-06] MEDS: FAMOTIDINE INJ/PF 20 MG/2 ML SDV IV SCH ×2 (10:04→22:30)
[2017-05-06] MEDS: GUAIFENESIN 600 MG TABLET.SA PO SCH ×2 (10:19→22:36)
[2017-05-06] MEDS: DOXYCYCLINE HYCLATE 100 MG in DEXTROSE 5%-WATER 250 ML IV SCH ×2 (10:57→22:32)
[2017-05-06] MEDS: DIPHENHYDRAMINE HCL 50 MG/ML VIAL IV PRN ×2 (10:58→15:22)
--- NOTE | 2017-05-06 13:39 | XCELERA REPORT ---
[address] [address] Transthoracic Echocardiogram Report Name: FABI FRANCISCO Age: 71 yrs Gender: Male : 1945 Patient Status: Inpatient Patient Location: ICU^[id number] Study Date: 05/06/2017 09:27 AM Height: 67 in Weight: 235 lb BSA: 2.2 m2 Procedure: A two-dimensional transthoracic echocardiogram with color flow and Doppler was performed. Study Quality: Technically suboptimal. The study was technically difficult with many images being suboptimal in quality. Reason For Study: CHF History: CHF. Ordering Physician: SHAHLA BELLO Performed By: Pallavi Pham Interpretation Summary The left ventricle is normal in size. There is mild concentric left ventricular hypertrophy. LV EF is 60% Left ventricular systolic function is normal. Doppler measurements suggest impaired left ventricular relaxation, which is associated with grade I/IV or mild diastolic dysfunction The left ventricular wall motion is normal. The right ventricle is not well visualized secondary to technical limitations The left atrial size is normal. There is no evidence of mitral valve prolapse. There is no vegetation seen on the mitral valve. There is no mitral valve stenosis. There is no mitral regurgitation noted. There is no aortic valve stenosis There is no LVOT obstruction. No aortic regurgitation is present. There is no tricuspid stenosis. There is a trace amount of tricuspid regurgitation Right ventricular systolic pressure is normal. RVSP is 14.5 to 19.5 mm of Hg , with RA mean of 5 to 10. There is no pulmonic valvular regurgitation. There is no pericardial effusion. MMode/2D Measurements & Calculations RVDd: 4.2 cm LVIDd: 4.2 cm FS: 33.5 % Ao root diam: 3.5 cm IVSd: 1.2 cm LVIDs: 2.8 cm EDV(Teich): 80.1 ml LVPWd: 1.2 cm ESV(Teich): 29.9 ml Ao root area: 9.7 cm2 EF(Teich): 62.6 % Doppler Measurements & Calculations MV E max sincere: MV dec slope: Ao V2 max: LV V1 max P.9 cm/sec 130.4 cm/sec 5.2 mmHg MV A max sincere: 291.6 cm/sec2 Ao max PG: LV V1 max: 87.5 cm/sec MV dec time: 6.8 mmHg 113.8 cm/sec MV E/A: 0.64 0.19 sec PA V2 max: TR max sincere: 71.6 cm/sec 154.0 cm/sec PA max PG: TR max P.5 mmHg 2.0 mmHg Left Ventricle The left ventricle is normal in size. There is mild concentric left ventricular hypertrophy. LV EF is 60%. Left ventricular systolic function is normal. Doppler measurements suggest impaired left ventricular relaxation, which is associated with grade I/IV or mild diastolic dysfunction. The left ventricular wall motion is normal. There is no thrombus. Right Ventricle The right ventricle is not well visualized secondary to technical limitations. Atria The right atrium is normal. The left atrial size is normal. Mitral Valve There is no evidence of mitral valve prolapse. There is no vegetation seen on the mitral valve. There is no mitral valve stenosis. There is no mitral regurgitation noted. Aortic Valve There is no aortic valvular vegetation. There is no aortic valve stenosis. There is no LVOT obstruction. No aortic regurgitation is present. Tricuspid Valve There is no tricuspid stenosis. There is a trace amount of tricuspid regurgitation. Right ventricular systolic pressure is normal. RVSP is 14.5 to 19.5 mm of Hg , with RA mean of 5 to 10. Pulmonic Valve There is no pulmonic valvular stenosis. There is no pulmonic valvular regurgitation. Great Vessels The aortic root is not well visualized but is probably normal size. Effusions There is no pericardial effusion. : SHAHLA BELLO > Antoinette Grace
[2017-05-06] MEDS ORDERED: ENOXAPARIN SODIUM INJ 40 MG/0.4 ML DISP.SYRIN SUBCUT ONE (15:15)
[2017-05-06] MEDS ORDERED: LORAZEPAM INJ 2 MG/1 ML VIAL ONE (16:30)
[2017-05-06] MEDS: TAMSULOSIN HCL 0.4 MG CAP.SR.24H PO SCH (17:55)
[2017-05-06] MEDS: HYDRALAZINE HCL 25 MG TABLET PO SCH (17:55)
--- NOTE | 2017-05-06 19:44 | PDOC PROGRESS REPORT ---
Subjective Progress Note for:: 05/06/17 Subjective:: 71-year-old gentleman with past medical history of Chronic kidney disease Gastroesophageal reflux disease Nephrolithiasis Obesity Psoriasis Arthritis Depression Diabetes Hypertension Hyperlipidemia Stroke Colon cancer He presented to the hospital on May 03 with frequent falls and was brought in by his daughter with confusion. He was diagnosed with metabolic encephalopathy and acute hypoxic respiratory failure due to bilateral pneumonia. He was agitated and confused and was initially treated with Haldol, Ativan, morphine and Zyprexa. He is currently being treated for pneumonia. Blood cultures 1 out of 2 sets grew gram-positive cocci. Continue vancomycin and Zosyn. Avoid QTC prolonging agents. Transferred to the intensive care unit on May 05 due to somnolence and hypercapnia. He received 1 dose of flumazenil. The patient is doing better today. He was up and awake and asked for some breakfast. His daughter is at the bedside. We will use Ativan as needed anxiety or agitation. Use BiPAP whenever the patient is sleeping. Reason For Visit: SEPSIS, PNEUMONIA, ACUTE METABOLIC ENCEPHALOPATHY Physical Exam Vital Signs: Temp Pulse Resp BP Pulse Ox 98.6 F 83 29 H 157/85 H 97 05/06/17 08:00 05/06/17 08:00 05/06/17 16:27 05/06/17 16:09 05/06/17 16:27 Intake & Output 05/05/17 05/06/17 05/07/17 06:59 06:59 06:59 Intake Total 502 425 Output Total 1210 2150 Balance -708 -1725 Weight 107.3 kg Additional comments: Obese elderly male sitting in bed not in acute distress Lungs: Scattered rhonchi heard no wheezing or crackles normal respiratory effort Cardiac: S1-S2 present, no murmurs heard, no peripheral edema no cyanosis Abdomen: Soft, obese no focal tenderness normal bowel sounds Skin: Warm and dry Results Laboratory Results: 05/06/17 04:43 05/06/17 04:43 05/06/17 05/06/17 04:43 04:43 WBC 5.2 RBC 4.20 L Hgb 12.7 L Hct 37.4 L MCV 89 MCH 30.3 MCHC 34.1 RDW 16.4 H Plt Count 125 L Sodium 142.7 Potassium 4.7 Chloride 110 H Carbon Dioxide 22 Anion Gap 11 BUN 47 H Creatinine 1.13 Est GFR ( Amer) > 60 Est GFR (Non-Af Amer) > 60 Glucose 223 H Calcium 8.3 L Phosphorus 5.1 H Magnesium 2.5 H 05/05/17 05/06/17 17:50 04:43 NT-Pro-B Natriuret Pep 139 203 Impressions: Head CT 05/03/17 20:31 IMPRESSION: No acute intracranial findings. EVIDENCE OF ACUTE STROKE: NO. Chest X-Ray 05/05/17 00:00 IMPRESSION: Trace bilateral pleural effusions with pulmonary vascular congestion worrisome for mild fluid overload There is consolidation in the left retrocardiac region atelectasis versus pneumonia Assessment & Plan - Diagnosis (2) Acute hypoxemic respiratory failure Is this a current diagnosis for this admission?: Yes (3) Acute metabolic encephalopathy Is this a current diagnosis for this admission?: Yes (4) Bilateral pneumonia Qualifiers: Pneumonia type: due to unspecified organism Lung location: lower lobe of lung Qualified Code(s): J18.9 - Pneumonia, unspecified organism Is this a current diagnosis for this admission?: Yes (6) Hyponatremia Is this a current diagnosis for this admission?: Yes (7) CHF (congestive heart failure) Qualifiers: Congestive heart failure type: unspecified congestive heart failure type Congestive heart failure chronicity: chronic Qualified Code(s): I50.9 - Heart failure, unspecified Is this a current diagnosis for this admission?: Yes (8) Chronic kidney disease (CKD) Qualifiers: Chronic kidney disease stage: stage 3 (moderate) Qualified Code(s): N18.3 - Chronic kidney disease, stage 3 (moderate) Is this a current diagnosis for this admission?: Yes (9) Diabetes Qualifiers: Diabetes mellitus type: type 2 Diabetes mellitus complication status: with neurologic complications Diabetes mellitus complication detail: with polyneuropathy Diabetes mellitus skilled nursing insulin use: with skilled nursing use Qualified Code(s): E11.42 - Type 2 diabetes mellitus with diabetic polyneuropathy; Z79.4 - intermediate (current) use of insulin; Z79.4 - technician terminal and repeater ( current) use of insulin; Z79.4 - intermediate (current) use of insulin; Z79.4 - intermediate (current) use of insulin Is this a current diagnosis for this admission?: Yes (10) Hypertension Qualifiers: Hypertension type: essential hypertension Qualified Code(s): I10 - Essential (primary) hypertension Is this a current diagnosis for this admission?: Yes (11) Psoriatic arthritis Is this a current diagnosis for this admission?: Yes - Time Time Spent with patient: 35 or more minutes - Plan Summary Plan Summary: Continue antibiotics, mental oxygen treatments for pneumonia He has severe sleep apnea we will continue BiPAP whenever he sleeps. Continue to monitor closely in the ICU.
[2017-05-06] MEDS: LORAZEPAM INJ 2 MG/1 ML VIAL IV PRN (20:41)
[2017-05-06] MEDS: INSULIN GLARGINE,HUM.REC.ANLOG 300 UNIT/3 ML INSULN.PEN SUBCUT SCH (22:31)
[2017-05-06] MEDS: TRAZODONE HCL 50 MG TABLET PO SCH (22:35)
[2017-05-06] MEDS: LORAZEPAM 1 MG TABLET PO PRN (22:35)
[2017-05-07] MEDS: MEROPENEM 1 GM in NORMAL SALINE 50 ML IV SCH ×3 (02:51→17:07)
[2017-05-07] MEDS: LORAZEPAM INJ 2 MG/1 ML VIAL IV PRN ×3 (06:15→23:38)
[2017-05-07 06:28] LABS: ABSOLUTE BASOPHILS # (AUTO) 0.1 10^3/uL (0.0-0.2); ABSOLUTE EOSINOPHILS # (AUTO) 0.2 10^3/uL (0.0-0.6); ABSOLUTE MONOCYTES (AUTO) 0.4 10^3/uL (0.1-1.4); ABSOLUTE NEUT (AUTO) 3.1 10^3/uL (1.7-8.2); BASOPHILS % (AUTO) 1.3 % (0-2); EOSINOPHILS % (AUTO) 3.4 % (0-6); HEMATOCRIT 37.5 % (37.9-51.0); HEMOGLOBIN 12.5 g/dL (13.5-17.0); LYMPHOCYTES % (AUTO) 20.7 % (13-45); MEAN CORPUSCULAR HEMOGLOBIN 29.9 pg (27.0-33.4); MEAN CORPUSCULAR HGB CONC 33.2 g/dL (32.0-36.0); MEAN CORPUSCULAR VOLUME 90 fl (80-97); MONOCYTES % (AUTO) 9.4 % (3-13); PLATELET COUNT 128 10^3/uL (150-450); RED BLOOD COUNT 4.16 10^6/uL (4.35-5.55); RED CELL DISTRIBUTION WIDTH 16.3 % (11.5-14.0); SEGMENTED NEUTROPHILS % (AUTO) 65.2 % (42-78); TOTAL CELLS COUNTED % (AUTO) 100 %; WHITE BLOOD COUNT 4.7 10^3/uL (4.0-10.5)
[2017-05-07 06:35] LABS: ANION GAP 10 (5-19); BLOOD UREA NITROGEN 43 mg/dL (7-20); CALCIUM 8.6 mg/dL (8.4-10.2); CARBON DIOXIDE 25 mmol/L (22-30); CHLORIDE 107 mmol/L (98-107); GLUCOSE 233 mg/dL (75-110); MAGNESIUM 2.4 mg/dL (1.6-2.3); POTASSIUM 4.5 mmol/L (3.6-5.0); SODIUM 141.6 mmol/L (137-145)
[2017-05-07 08:03] LABS: ARTERIAL BLOOD BASE EXCESS 0.9 mmol/L; ARTERIAL BLOOD H2CO3 1.32 mmol/L (1.05-1.35); ARTERIAL BLOOD O2 SATURATION 97.3 % (94-98); ARTERIAL BLOOD PCO2 43.7 mmHg (35-45); ARTERIAL BLOOD PH 7.39 (7.35-7.45); ARTERIAL BLOOD TOTAL CO2 27.4 mmol/L (23-27)
[2017-05-07 08:06] LABS: ARTERIAL BLOOD FIO2 50%
--- NOTE | 2017-05-07 08:51 | RADIOLOGY REPORT (SQ) ---
EXAM DESCRIPTION: CHEST SINGLE VIEW COMPLETED DATE/TIME: 05/07/2017 8:02 am REASON FOR STUDY: PNA, increased O2 requirment COMPARISON: 05/05/2017, 05/03/2017, 02/08/2016 chest films EXAM PARAMETERS: NUMBER OF VIEWS: One view. TECHNIQUE: Single frontal radiographic view of the chest acquired. RADIATION DOSE: NA LIMITATIONS: None. FINDINGS: LUNGS AND PLEURA: Indistinct left hemidiaphragm, suspect mild left basilar airspace diseas e atelectasis versus pneumonia. Right lung grossly clear. No pleural effusions. No pneumothorax. MEDIASTINUM AND HILAR STRUCTURES: No masses. Contour normal. HEART AND VASCULAR STRUCTURES: Mild stable cardiomegaly BONES: No acute findings. HARDWARE: None in the chest. OTHER: No other significant finding. IMPRESSION: Patchy left basilar airspace disease atelectasis versus pneumonia TECHNICAL DOCUMENTATION: JOB ID: [id number] [employer]- All Rights Reserved
[2017-05-07] MEDS: DOXYCYCLINE HYCLATE 100 MG in DEXTROSE 5%-WATER 250 ML IV SCH ×2 (09:47→21:11)
[2017-05-07] MEDS: FAMOTIDINE INJ/PF 20 MG/2 ML SDV IV SCH ×2 (09:47→21:12)
[2017-05-07] MEDS: ENOXAPARIN SODIUM INJ 40 MG/0.4 ML DISP.SYRIN SUBCUT SCH (10:50)
[2017-05-07] MEDS: INSULIN LISPRO 100 UNIT/ML 3 ML VIAL SUBCUT PRN ×3 (11:38→21:11)
[2017-05-07] MEDS: LACTOBACILLUS ACIDOPHILUS 250 MG TAB PO SCH ×2 (11:56→17:07)
[2017-05-07] MEDS: GUAIFENESIN 600 MG TABLET.SA PO SCH ×2 (11:56→21:11)
[2017-05-07] MEDS ORDERED: VANCOMYCIN HCL 2,000 MG in DEXTROSE 5%-WATER 500 ML IV ONE (12:00)
--- NOTE | 2017-05-07 13:18 | PDOC PROGRESS REPORT ---
Subjective Progress Note for:: 05/07/17 Subjective:: At the time my exam the patient was somnolent but arousable. Reason For Visit: SEPSIS, PNEUMONIA, ACUTE METABOLIC ENCEPHALOPATHY Physical Exam Vital Signs: Temp Pulse Resp BP Pulse Ox 98.8 F 80 27 H 136/66 H 95 05/07/17 12:00 05/07/17 12:00 05/07/17 12:00 05/07/17 12:00 05/07/17 12:00 Intake & Output 05/06/17 05/07/17 05/08/17 06:59 06:59 06:59 Intake Total 502 974 Output Total 1210 2795 248 Balance -708 -1821 -248 Weight 107.3 kg 104.1 kg General appearance: PRESENT: no acute distress Eye exam: PRESENT: conjunctiva pink. ABSENT: scleral icterus Mouth exam: PRESENT: moist, tongue midline Neck exam: ABSENT: JVD Respiratory exam: PRESENT: rhonchi. ABSENT: rales, wheezes Cardiovascular exam: PRESENT: RRR. ABSENT: diastolic murmur, rubs, systolic murmur GI/Abdominal exam: PRESENT: normal bowel sounds, soft. ABSENT: distended, guarding, mass, organolmegaly, rebound, tenderness Extremities exam: PRESENT: pedal edema. ABSENT: calf tenderness, clubbing Neurological exam: PRESENT: other - Somnolent but arousable Skin exam: PRESENT: dry, intact, warm. ABSENT: cyanosis, rash Results Laboratory Results: 05/07/17 06:13 05/07/17 06:13 05/07/17 05/07/17 05/07/17 06:13 06:13 07:43 WBC 4.7 RBC 4.16 L Hgb 12.5 L Hct 37.5 L MCV 90 MCH 29.9 MCHC 33.2 RDW 16.3 H Plt Count 128 L Seg Neutrophils % 65.2 Lymphocytes % 20.7 Monocytes % 9.4 Eosinophils % 3.4 Basophils % 1.3 Absolute Neutrophils 3.1 Absolute Lymphocytes 1.0 Absolute Monocytes 0.4 Absolute Eosinophils 0.2 Absolute Basophils 0.1 Carbonic Acid 1.32 HCO3/H2CO3 Ratio 19:1 ABG pH 7.39 ABG pCO2 43.7 ABG pO2 96.0 ABG HCO3 26.0 ABG O2 Saturation 97.3 ABG Base Excess 0.9 FiO2 50% Sodium 141.6 Potassium 4.5 Chloride 107 Carbon Dioxide 25 Anion Gap 10 BUN 43 H Creatinine 1.02 Est GFR ( Amer) > 60 Est GFR (Non-Af Amer) > 60 Glucose 233 H Calcium 8.6 Magnesium 2.4 H 05/05/17 05/06/17 17:50 04:43 NT-Pro-B Natriuret Pep 139 203 Impressions: Head CT 05/03/17 20:31 IMPRESSION: No acute intracranial findings. EVIDENCE OF ACUTE STROKE: NO. Chest X-Ray 05/07/17 07:42 IMPRESSION: Patchy left basilar airspace disease atelectasis versus pneumonia Assessment & Plan - Diagnosis (1) Acute hypoxemic respiratory failure Is this a current diagnosis for this admission?: Yes Plan: Secondary to pneumonia. Patient has been on BiPAP and antibiotics. Clinically he is improving. (2) Acute metabolic encephalopathy Is this a current diagnosis for this admission?: Yes Plan: Most likely secondary to the pneumonia. (3) Bilateral pneumonia Qualifiers: Pneumonia type: due to unspecified organism Lung location: lower lobe of lung Qualified Code(s): J18.9 - Pneumonia, unspecified organism Is this a current diagnosis for this admission?: Yes Plan: Continue with vancomycin and meropenem. Blood cultures have grown out gram- positive cocci. (4) Hyponatremia Is this a current diagnosis for this admission?: Yes Plan: Resolved. (5) CHF (congestive heart failure) Qualifiers: Congestive heart failure type: unspecified congestive heart failure type Congestive heart failure chronicity: chronic Qualified Code(s): I50.9 - Heart failure, unspecified Is this a current diagnosis for this admission?: Yes Plan: Patient appears to be euvolemic. (6) Chronic kidney disease (CKD) Qualifiers: Chronic kidney disease stage: stage 3 (moderate) Qualified Code(s): N18.3 - Chronic kidney disease, stage 3 (moderate) Is this a current diagnosis for this admission?: Yes Plan: Creatinine has normalized. (7) Coronary artery disease Qualifiers: Coronary Disease-Associated Artery/Lesion type: [place] artery [place] vs. transplanted heart: [place] heart Associated angina: angina presence unspecified Qualified Code(s): I25.10 - Atherosclerotic heart disease of [place] coronary artery without angina pectoris Is this a current diagnosis for this admission?: Yes (8) Diabetes Qualifiers: Diabetes mellitus type: type 2 Diabetes mellitus complication status: with neurologic complications Diabetes mellitus complication detail: with polyneuropathy Diabetes mellitus terminal supervisor insulin use: with terminal supervisor use Qualified Code(s): E11.42 - Type 2 diabetes mellitus with diabetic polyneuropathy; Z79.4 - termite treater helper (current) use of insulin; Z79.4 - termite treater helper ( current) use of insulin; Z79.4 - termite treater helper (current) use of insulin; Z79.4 - termite treater helper (current) use of insulin Is this a current diagnosis for this admission?: Yes Plan: Continue with Lantus and sliding scale insulin. (9) Hypertension Qualifiers: Hypertension type: essential hypertension Qualified Code(s): I10 - Essential (primary) hypertension Is this a current diagnosis for this admission?: Yes Plan: Stable. - Time Time Spent with patient: 25-34 minutes - Inpatient Certification Medical Necessity: Need Close Monitoring Due to Risk of Patient Decompensation, Need for IV Antibiotics - Plan Summary Plan Summary: We will transfer out of the ICU to the [facility].
[2017-05-07] MEDS: CARVEDILOL 6.25 MG TABLET PO SCH ×2 (15:50→21:11)
[2017-05-07] MEDS: CLOPIDOGREL BISULFATE 75 MG TABLET PO SCH (15:50)
[2017-05-07] MEDS: ACETAMINOPHEN 325 MG TABLET PO PRN (17:07)
[2017-05-07] MEDS: TAMSULOSIN HCL 0.4 MG CAP.SR.24H PO SCH (17:07)
[2017-05-07] MEDS: HYDRALAZINE HCL 25 MG TABLET PO SCH (17:08)
[2017-05-07] MEDS: TRAZODONE HCL 50 MG TABLET PO SCH (21:11)
[2017-05-07] MEDS: INSULIN GLARGINE,HUM.REC.ANLOG 300 UNIT/3 ML INSULN.PEN SUBCUT SCH (21:11)
[2017-05-08] MEDS: MEROPENEM 1 GM in NORMAL SALINE 50 ML IV SCH ×3 (01:58→18:40)
[2017-05-08 05:54] LABS: ABSOLUTE EOSINOPHILS # (AUTO) 0.2 10^3/uL (0.0-0.6); ABSOLUTE LYMPHOCYTES (AUTO) 0.9 10^3/uL (0.5-4.7); ABSOLUTE MONOCYTES (AUTO) 0.4 10^3/uL (0.1-1.4); ABSOLUTE NEUT (AUTO) 3.3 10^3/uL (1.7-8.2); BASOPHILS % (AUTO) 0.8 % (0-2); EOSINOPHILS % (AUTO) 3.9 % (0-6); HEMOGLOBIN 12.2 g/dL (13.5-17.0); LYMPHOCYTES % (AUTO) 19.4 % (13-45); MEAN CORPUSCULAR HEMOGLOBIN 30.1 pg (27.0-33.4); MEAN CORPUSCULAR HGB CONC 33.8 g/dL (32.0-36.0); MEAN CORPUSCULAR VOLUME 89 fl (80-97); MONOCYTES % (AUTO) 8.6 % (3-13); PLATELET COUNT 131 10^3/uL (150-450); RED BLOOD COUNT 4.04 10^6/uL (4.35-5.55); RED CELL DISTRIBUTION WIDTH 16.1 % (11.5-14.0); SEGMENTED NEUTROPHILS % (AUTO) 67.3 % (42-78); TOTAL CELLS COUNTED % (AUTO) 100 %; WHITE BLOOD COUNT 4.9 10^3/uL (4.0-10.5)
[2017-05-08 06:20] LABS: ANION GAP 9 (5-19); BLOOD UREA NITROGEN 33 mg/dL (7-20); CALCIUM 8.7 mg/dL (8.4-10.2); CARBON DIOXIDE 26 mmol/L (22-30); CHLORIDE 108 mmol/L (98-107); GLUCOSE 231 mg/dL (75-110); POTASSIUM 4.1 mmol/L (3.6-5.0)
[2017-05-08] MEDS: LORAZEPAM INJ 2 MG/1 ML VIAL IV PRN (08:28)
--- NOTE | 2017-05-08 10:20 | PDOC PROGRESS REPORT ---
Subjective Progress Note for:: 05/08/17 Subjective:: At the time my exam the patient was somnolent but arousable on BiPAP. Reason For Visit: SEPSIS, PNEUMONIA, ACUTE METABOLIC ENCEPHALOPATHY Physical Exam Vital Signs: Temp Pulse Resp BP Pulse Ox 99.7 F 102 H 26 H 220/83 H 95 05/08/17 07:54 05/08/17 07:54 05/08/17 07:54 05/08/17 07:54 05/08/17 07:54 Intake & Output 05/07/17 05/08/17 05/09/17 06:59 06:59 06:59 Intake Total 974 478 Output Total 2795 1598 Balance -1821 -1120 Weight 104.1 kg 102.3 kg General appearance: PRESENT: no acute distress Eye exam: PRESENT: conjunctiva pink. ABSENT: scleral icterus Mouth exam: PRESENT: moist, tongue midline Neck exam: ABSENT: JVD Respiratory exam: PRESENT: rhonchi. ABSENT: rales, wheezes Cardiovascular exam: PRESENT: RRR. ABSENT: diastolic murmur, rubs, systolic murmur GI/Abdominal exam: PRESENT: normal bowel sounds, soft. ABSENT: distended, guarding, mass, organolmegaly, rebound, tenderness Extremities exam: ABSENT: calf tenderness, clubbing, pedal edema Neurological exam: PRESENT: altered, CN II-XII grossly intact. ABSENT: motor sensory deficit Psychiatric exam: PRESENT: flat affect Skin exam: PRESENT: dry, intact, warm. ABSENT: cyanosis, rash Results Laboratory Results: 05/08/17 05:16 05/08/17 05:16 05/08/17 05/08/17 05:16 05:16 WBC 4.9 RBC 4.04 L Hgb 12.2 L Hct 36.0 L MCV 89 MCH 30.1 MCHC 33.8 RDW 16.1 H Plt Count 131 L Seg Neutrophils % 67.3 Lymphocytes % 19.4 Monocytes % 8.6 Eosinophils % 3.9 Basophils % 0.8 Absolute Neutrophils 3.3 Absolute Lymphocytes 0.9 Absolute Monocytes 0.4 Absolute Eosinophils 0.2 Absolute Basophils 0.0 Sodium 143.0 Potassium 4.1 Chloride 108 H Carbon Dioxide 26 Anion Gap 9 BUN 33 H Creatinine 0.95 Est GFR ( Amer) > 60 Est GFR (Non-Af Amer) > 60 Glucose 231 H Calcium 8.7 05/05/17 05/06/17 17:50 04:43 NT-Pro-B Natriuret Pep 139 203 Impressions: Head CT 05/03/17 20:31 IMPRESSION: No acute intracranial findings. EVIDENCE OF ACUTE STROKE: NO. Chest X-Ray 05/07/17 07:42 IMPRESSION: Patchy left basilar airspace disease atelectasis versus pneumonia Assessment & Plan - Diagnosis (1) Acute hypoxemic respiratory failure Is this a current diagnosis for this admission?: Yes Plan: Secondary to pneumonia. Patient has been on BiPAP and antibiotics. Clinically he is improving from a pneumonia standpoint however he still having confusion. (2) Acute metabolic encephalopathy Is this a current diagnosis for this admission?: Yes Plan: Most likely secondary to the pneumonia. (3) Bilateral pneumonia Qualifiers: Pneumonia type: due to unspecified organism Lung location: lower lobe of lung Qualified Code(s): J18.9 - Pneumonia, unspecified organism Is this a current diagnosis for this admission?: Yes Plan: Continue with vancomycin and meropenem. Blood cultures have grown out gram- positive cocci. (4) Hyponatremia Is this a current diagnosis for this admission?: Yes Plan: Resolved. (5) CHF (congestive heart failure) Qualifiers: Congestive heart failure type: unspecified congestive heart failure type Congestive heart failure chronicity: chronic Qualified Code(s): I50.9 - Heart failure, unspecified Is this a current diagnosis for this admission?: Yes Plan: Patient appears to be euvolemic. (6) Chronic kidney disease (CKD) Qualifiers: Chronic kidney disease stage: stage 3 (moderate) Qualified Code(s): N18.3 - Chronic kidney disease, stage 3 (moderate) Is this a current diagnosis for this admission?: Yes Plan: Creatinine has normalized. (7) Coronary artery disease Qualifiers: Coronary Disease-Associated Artery/Lesion type: [place] artery [place] vs. transplanted heart: [place] heart Associated angina: angina presence unspecified Qualified Code(s): I25.10 - Atherosclerotic heart disease of [place] coronary artery without angina pectoris Is this a current diagnosis for this admission?: Yes (8) Diabetes Qualifiers: Diabetes mellitus type: type 2 Diabetes mellitus complication status: with neurologic complications Diabetes mellitus complication detail: with polyneuropathy Diabetes mellitus exterminator insulin use: with exterminator use Qualified Code(s): E11.42 - Type 2 diabetes mellitus with diabetic polyneuropathy; Z79.4 - [facility] (current) use of insulin; Z79.4 - [facility] ( current) use of insulin; Z79.4 - [facility] (current) use of insulin; Z79.4 - superintendent marine oil terminal (current) use of insulin Is this a current diagnosis for this admission?: Yes Plan: Continue with Lantus and sliding scale insulin. (9) Hypertension Qualifiers: Hypertension type: essential hypertension Qualified Code(s): I10 - Essential (primary) hypertension Is this a current diagnosis for this admission?: Yes Plan: Stable. - Time Time Spent with patient: 25-34 minutes - Inpatient Certification Medical Necessity: Need Close Monitoring Due to Risk of Patient Decompensation
[2017-05-08] MEDS: ENOXAPARIN SODIUM INJ 40 MG/0.4 ML DISP.SYRIN SUBCUT SCH (11:00)
[2017-05-08] MEDS: LACTOBACILLUS ACIDOPHILUS 250 MG TAB PO SCH ×2 (11:00→18:40)
[2017-05-08] MEDS ORDERED: VANCOMYCIN HCL 2,000 MG in DEXTROSE 5%-WATER 500 ML IV SCH (11:00)
[2017-05-08] MEDS: CLOPIDOGREL BISULFATE 75 MG TABLET PO SCH (11:00)
[2017-05-08] MEDS ORDERED: VANCOMYCIN HCL 2,000 MG in NORMAL SALINE 500 ML IV SCH ×2 (11:00→14:00)
[2017-05-08] MEDS: CARVEDILOL 6.25 MG TABLET PO SCH ×2 (11:00→21:24)
[2017-05-08] MEDS: FAMOTIDINE INJ/PF 20 MG/2 ML SDV IV SCH ×2 (11:00→21:23)
[2017-05-08] MEDS: GUAIFENESIN 600 MG TABLET.SA PO SCH ×2 (11:01→21:23)
[2017-05-08] MEDS: INSULIN LISPRO 100 UNIT/ML 3 ML VIAL SUBCUT PRN ×3 (11:10→22:53)
[2017-05-08] MEDS: ACETAMINOPHEN 325 MG TABLET PO PRN ×2 (11:11→23:45)
[2017-05-08 11:35] LABS: VANCOMYCIN,TROUGH 7.5 ug/mL (5.0-20.0)
[2017-05-08] MEDS: DOXYCYCLINE HYCLATE 100 MG in DEXTROSE 5%-WATER 250 ML IV SCH ×2 (12:14→21:24)
[2017-05-08] MEDS: HYDRALAZINE HCL 25 MG TABLET PO SCH (18:40)
[2017-05-08] MEDS: TRAZODONE HCL 50 MG TABLET PO SCH (21:24)
[2017-05-08] MEDS: TAMSULOSIN HCL 0.4 MG CAP.SR.24H PO SCH (21:30)
[2017-05-08] MEDS: INSULIN GLARGINE,HUM.REC.ANLOG 300 UNIT/3 ML INSULN.PEN SUBCUT SCH (21:56)
[2017-05-09] MEDS: MEROPENEM 1 GM in NORMAL SALINE 50 ML IV SCH ×3 (01:43→18:32)
[2017-05-09 06:22] LABS: ABSOLUTE EOSINOPHILS # (AUTO) 0.1 10^3/uL (0.0-0.6); ABSOLUTE LYMPHOCYTES (AUTO) 1.1 10^3/uL (0.5-4.7); ABSOLUTE MONOCYTES (AUTO) 0.5 10^3/uL (0.1-1.4); ABSOLUTE NEUT (AUTO) 3.5 10^3/uL (1.7-8.2); BASOPHILS % (AUTO) 0.8 % (0-2); EOSINOPHILS % (AUTO) 2.8 % (0-6); HEMATOCRIT 36.7 % (37.9-51.0); HEMOGLOBIN 12.3 g/dL (13.5-17.0); LYMPHOCYTES % (AUTO) 20.5 % (13-45); MEAN CORPUSCULAR HEMOGLOBIN 29.7 pg (27.0-33.4); MEAN CORPUSCULAR HGB CONC 33.4 g/dL (32.0-36.0); MEAN CORPUSCULAR VOLUME 89 fl (80-97); MONOCYTES % (AUTO) 9.2 % (3-13); PLATELET COUNT 151 10^3/uL (150-450); RED BLOOD COUNT 4.12 10^6/uL (4.35-5.55); RED CELL DISTRIBUTION WIDTH 15.9 % (11.5-14.0); SEGMENTED NEUTROPHILS % (AUTO) 66.7 % (42-78); TOTAL CELLS COUNTED % (AUTO) 100 %; WHITE BLOOD COUNT 5.2 10^3/uL (4.0-10.5)
[2017-05-09 06:42] LABS: ANION GAP 10 (5-19); BLOOD UREA NITROGEN 32 mg/dL (7-20); CARBON DIOXIDE 26 mmol/L (22-30); CHLORIDE 108 mmol/L (98-107); GLUCOSE 218 mg/dL (75-110); POTASSIUM 4.1 mmol/L (3.6-5.0)
[2017-05-09] MEDS: CARVEDILOL 6.25 MG TABLET PO SCH ×2 (10:56→22:23)
[2017-05-09] MEDS: FAMOTIDINE INJ/PF 20 MG/2 ML SDV IV SCH ×2 (10:56→22:11)
[2017-05-09] MEDS: DOXYCYCLINE HYCLATE 100 MG in DEXTROSE 5%-WATER 250 ML IV SCH ×2 (10:56→22:11)
[2017-05-09] MEDS: GUAIFENESIN 600 MG TABLET.SA PO SCH ×2 (10:56→22:19)
[2017-05-09] MEDS: ENOXAPARIN SODIUM INJ 40 MG/0.4 ML DISP.SYRIN SUBCUT SCH (10:56)
[2017-05-09] MEDS: LACTOBACILLUS ACIDOPHILUS 250 MG TAB PO SCH ×2 (10:56→18:32)
[2017-05-09] MEDS: CLOPIDOGREL BISULFATE 75 MG TABLET PO SCH (10:56)
--- NOTE | 2017-05-09 11:25 | PDOC PROGRESS REPORT ---
Subjective Progress Note for:: 05/09/17 Subjective:: The patient is slightly more alert today. Reason For Visit: SEPSIS, PNEUMONIA, ACUTE METABOLIC ENCEPHALOPATHY Physical Exam Vital Signs: Temp Pulse Resp BP Pulse Ox 98.6 F 95 21 H 157/90 H 93 05/09/17 07:52 05/09/17 07:52 05/09/17 07:52 05/09/17 07:52 05/09/17 07:52 Intake & Output 05/08/17 05/09/17 05/10/17 06:59 06:59 06:59 Intake Total 478 1355 Output Total 1598 1400 Balance -1120 -45 Weight 102.3 kg 102.4 kg General appearance: PRESENT: no acute distress Eye exam: PRESENT: conjunctiva pink. ABSENT: scleral icterus Mouth exam: PRESENT: dry mucosa Neck exam: ABSENT: JVD Respiratory exam: PRESENT: rhonchi. ABSENT: rales, wheezes Cardiovascular exam: PRESENT: RRR. ABSENT: diastolic murmur, rubs, systolic murmur GI/Abdominal exam: PRESENT: normal bowel sounds, soft. ABSENT: distended, guarding, mass, organolmegaly, rebound, tenderness Extremities exam: ABSENT: calf tenderness, clubbing, pedal edema Neurological exam: PRESENT: altered Psychiatric exam: PRESENT: flat affect Skin exam: PRESENT: dry, intact, warm. ABSENT: cyanosis, rash Results Laboratory Results: 05/09/17 05:49 05/09/17 05:49 05/09/17 05/09/17 05:49 05:49 WBC 5.2 RBC 4.12 L Hgb 12.3 L Hct 36.7 L MCV 89 MCH 29.7 MCHC 33.4 RDW 15.9 H Plt Count 151 Seg Neutrophils % 66.7 Lymphocytes % 20.5 Monocytes % 9.2 Eosinophils % 2.8 Basophils % 0.8 Absolute Neutrophils 3.5 Absolute Lymphocytes 1.1 Absolute Monocytes 0.5 Absolute Eosinophils 0.1 Absolute Basophils 0.0 Sodium 144.0 Potassium 4.1 Chloride 108 H Carbon Dioxide 26 Anion Gap 10 BUN 32 H Creatinine 0.94 Est GFR ( Amer) > 60 Est GFR (Non-Af Amer) > 60 Glucose 218 H Calcium 9.0 05/05/17 05/06/17 17:50 04:43 NT-Pro-B Natriuret Pep 139 203 Impressions: Head CT 05/03/17 20:31 IMPRESSION: No acute intracranial findings. EVIDENCE OF ACUTE STROKE: NO. Chest X-Ray 05/07/17 07:42 IMPRESSION: Patchy left basilar airspace disease atelectasis versus pneumonia Assessment & Plan - Diagnosis (1) Acute hypoxemic respiratory failure Is this a current diagnosis for this admission?: Yes Plan: Secondary to pneumonia. Patient has been on BiPAP and antibiotics. Clinically he is improving from a pneumonia standpoint however he still having confusion. (2) Acute metabolic encephalopathy Is this a current diagnosis for this admission?: Yes Plan: Most likely secondary to the pneumonia. (3) Bilateral pneumonia Qualifiers: Pneumonia type: due to unspecified organism Lung location: lower lobe of lung Qualified Code(s): J18.9 - Pneumonia, unspecified organism Is this a current diagnosis for this admission?: Yes Plan: Continue with meropenem. Blood cultures have grown out gram-positive cocci that appears to most likely be a strep species. Will DC the vancomycin. (4) Hyponatremia Is this a current diagnosis for this admission?: Yes Plan: Resolved. (5) CHF (congestive heart failure) Qualifiers: Congestive heart failure type: unspecified congestive heart failure type Congestive heart failure chronicity: chronic Qualified Code(s): I50.9 - Heart failure, unspecified Is this a current diagnosis for this admission?: Yes Plan: Patient appears to be euvolemic. (6) Chronic kidney disease (CKD) Qualifiers: Chronic kidney disease stage: stage 3 (moderate) Qualified Code(s): N18.3 - Chronic kidney disease, stage 3 (moderate) Is this a current diagnosis for this admission?: Yes Plan: Creatinine has normalized. (7) Coronary artery disease Qualifiers: Coronary Disease-Associated Artery/Lesion type: [place] artery [place] vs. transplanted heart: [place] heart Associated angina: angina presence unspecified Qualified Code(s): I25.10 - Atherosclerotic heart disease of [place] coronary artery without angina pectoris Is this a current diagnosis for this admission?: Yes (8) Diabetes Qualifiers: Diabetes mellitus type: type 2 Diabetes mellitus complication status: with neurologic complications Diabetes mellitus complication detail: with polyneuropathy Diabetes mellitus meterman insulin use: with meterman use Qualified Code(s): E11.42 - Type 2 diabetes mellitus with diabetic polyneuropathy; Z79.4 - intermodal truck driver (current) use of insulin; Z79.4 - intermodal truck driver ( current) use of insulin; Z79.4 - intermodal truck driver (current) use of insulin; Z79.4 - intermodal truck driver (current) use of insulin Is this a current diagnosis for this admission?: Yes Plan: Continue with Lantus and sliding scale insulin. (9) Hypertension Qualifiers: Hypertension type: essential hypertension Qualified Code(s): I10 - Essential (primary) hypertension Is this a current diagnosis for this admission?: Yes Plan: Blood pressure has been increased. We will increase the Coreg. - Time Time Spent with patient: 25-34 minutes - Inpatient Certification Medical Necessity: Need Close Monitoring Due to Risk of Patient Decompensation, Need for IV Antibiotics
[2017-05-09] MEDS ORDERED: CARVEDILOL 6.25 MG TABLET PO ONE (12:30)
[2017-05-09 17:04] LABS: APPEARANCE,URINE CLOUDY; BILIRUBIN,URINE NEGATIVE (NEGATIVE); CALCIUM OXALATE CRYSTALS,URINE FEW /HPF; COLOR,URINE YELLOW; GLUCOSE, URINE >=500 mg/dL (NEGATIVE); KETONES,URINE 20 mg/dL (NEGATIVE); LEUKOCYTE ESTERASE,URINE NEGATIVE (NEGATIVE); NITRITE,URINE NEGATIVE (NEGATIVE); PROTEIN,URINE 30 mg/dL (NEGATIVE); URIC ACID CRYSTALS,URINE FEW /HPF; URINE SPECIFIC GRAVITY 1.024; UROBILINOGEN,URINE NEGATIVE mg/dL (<2.0)
[2017-05-09] MEDS: TAMSULOSIN HCL 0.4 MG CAP.SR.24H PO SCH (18:32)
[2017-05-09] MEDS: HYDRALAZINE HCL 25 MG TABLET PO SCH (18:32)
[2017-05-09] MEDS: INSULIN GLARGINE,HUM.REC.ANLOG 300 UNIT/3 ML INSULN.PEN SUBCUT SCH (22:19)
[2017-05-09] MEDS: TRAZODONE HCL 50 MG TABLET PO SCH (22:19)
[2017-05-09] MEDS: INSULIN LISPRO 100 UNIT/ML 3 ML VIAL SUBCUT PRN (22:25)
[2017-05-10] MEDS: MEROPENEM 1 GM in NORMAL SALINE 50 ML IV SCH ×3 (02:25→17:52)
[2017-05-10] MEDS: ACETAMINOPHEN 325 MG TABLET PO PRN (02:34)
[2017-05-10] MEDS: NORMAL SALINE 1000 ML 1,000 ML IV PRN (03:26)
[2017-05-10 05:38] LABS: ABSOLUTE BASOPHILS # (AUTO) 0.1 10^3/uL (0.0-0.2); ABSOLUTE EOSINOPHILS # (AUTO) 0.1 10^3/uL (0.0-0.6); ABSOLUTE LYMPHOCYTES (AUTO) 0.9 10^3/uL (0.5-4.7); ABSOLUTE MONOCYTES (AUTO) 0.5 10^3/uL (0.1-1.4); ABSOLUTE NEUT (AUTO) 4.9 10^3/uL (1.7-8.2); BASOPHILS % (AUTO) 0.8 % (0-2); EOSINOPHILS % (AUTO) 1.7 % (0-6); HEMATOCRIT 35.6 % (37.9-51.0); LYMPHOCYTES % (AUTO) 14.5 % (13-45); MEAN CORPUSCULAR HEMOGLOBIN 29.8 pg (27.0-33.4); MEAN CORPUSCULAR HGB CONC 33.6 g/dL (32.0-36.0); MEAN CORPUSCULAR VOLUME 89 fl (80-97); MONOCYTES % (AUTO) 8.1 % (3-13); PLATELET COUNT 156 10^3/uL (150-450); RED BLOOD COUNT 4.01 10^6/uL (4.35-5.55); SEGMENTED NEUTROPHILS % (AUTO) 74.9 % (42-78); TOTAL CELLS COUNTED % (AUTO) 100 %; WHITE BLOOD COUNT 6.5 10^3/uL (4.0-10.5)
[2017-05-10 05:47] LABS: ANION GAP 9 (5-19); BLOOD UREA NITROGEN 28 mg/dL (7-20); CALCIUM 9.2 mg/dL (8.4-10.2); CARBON DIOXIDE 27 mmol/L (22-30); CHLORIDE 109 mmol/L (98-107); GLUCOSE 229 mg/dL (75-110); SODIUM 144.9 mmol/L (137-145)
[2017-05-10] MEDS: INSULIN LISPRO 100 UNIT/ML 3 ML VIAL SUBCUT PRN ×2 (09:04→22:38)
[2017-05-10] MEDS: ENOXAPARIN SODIUM INJ 40 MG/0.4 ML DISP.SYRIN SUBCUT SCH (09:05)
[2017-05-10] MEDS: CARVEDILOL 6.25 MG TABLET PO SCH ×2 (09:07→22:50)
[2017-05-10] MEDS: LACTOBACILLUS ACIDOPHILUS 250 MG TAB PO SCH ×2 (09:08→17:50)
[2017-05-10] MEDS: GUAIFENESIN 600 MG TABLET.SA PO SCH ×2 (09:09→22:46)
[2017-05-10] MEDS: CLOPIDOGREL BISULFATE 75 MG TABLET PO SCH (09:09)
[2017-05-10] MEDS: FAMOTIDINE INJ/PF 20 MG/2 ML SDV IV SCH ×2 (09:11→22:48)
[2017-05-10] MEDS: DOXYCYCLINE HYCLATE 100 MG in DEXTROSE 5%-WATER 250 ML IV SCH ×2 (09:15→22:49)
--- NOTE | 2017-05-10 11:21 | PDOC PROGRESS REPORT ---
Subjective Progress Note for:: 05/10/17 Subjective:: The patient is slightly more alert today. Reason For Visit: SEPSIS, PNEUMONIA, ACUTE METABOLIC ENCEPHALOPATHY Physical Exam Vital Signs: Temp Pulse Resp BP Pulse Ox 98.2 F 66 22 H 156/75 H 93 05/10/17 07:30 05/10/17 07:30 05/10/17 07:30 05/10/17 07:30 05/10/17 07:30 Intake & Output 05/09/17 05/10/17 05/11/17 06:59 06:59 06:59 Intake Total 1355 1789 Output Total 1400 1680 Balance -45 109 Weight 102.4 kg 107.2 kg General appearance: PRESENT: no acute distress Eye exam: PRESENT: conjunctiva pink. ABSENT: scleral icterus Mouth exam: PRESENT: moist, tongue midline Neck exam: ABSENT: JVD Respiratory exam: PRESENT: clear to auscultation lewis. ABSENT: rales, rhonchi, wheezes Cardiovascular exam: PRESENT: RRR. ABSENT: diastolic murmur, rubs, systolic murmur GI/Abdominal exam: PRESENT: normal bowel sounds, soft. ABSENT: distended, guarding, mass, organolmegaly, rebound, tenderness Extremities exam: ABSENT: calf tenderness, clubbing, pedal edema Neurological exam: PRESENT: alert, awake, oriented to person, oriented to place , CN II-XII grossly intact. ABSENT: oriented to time, oriented to situation, motor sensory deficit Psychiatric exam: PRESENT: flat affect Skin exam: PRESENT: dry, intact, warm. ABSENT: cyanosis, rash Results Laboratory Results: 05/10/17 05:04 05/10/17 05:04 05/09/17 05/10/17 05/10/17 16:00 05:04 05:04 WBC 6.5 RBC 4.01 L Hgb 12.0 L Hct 35.6 L MCV 89 MCH 29.8 MCHC 33.6 RDW 16.0 H Plt Count 156 Seg Neutrophils % 74.9 Lymphocytes % 14.5 Monocytes % 8.1 Eosinophils % 1.7 Basophils % 0.8 Absolute Neutrophils 4.9 Absolute Lymphocytes 0.9 Absolute Monocytes 0.5 Absolute Eosinophils 0.1 Absolute Basophils 0.1 Sodium 144.9 Potassium 4.0 Chloride 109 H Carbon Dioxide 27 Anion Gap 9 BUN 28 H Creatinine 0.88 Est GFR ( Amer) > 60 Est GFR (Non-Af Amer) > 60 Glucose 229 H Calcium 9.2 Urine Color YELLOW Urine Appearance CLOUDY Urine pH 5.0 Ur Specific [place] 1.024 Urine Protein 30 H Urine Glucose (UA) >=500 H Urine Ketones 20 H Urine Blood LARGE H Urine Nitrite NEGATIVE Ur Leukocyte Esterase NEGATIVE Urine WBC (Auto) 34 Urine RBC (Auto) >182 05/05/17 05/06/17 17:50 04:43 NT-Pro-B Natriuret Pep 139 203 Impressions: Head CT 05/03/17 20:31 IMPRESSION: No acute intracranial findings. EVIDENCE OF ACUTE STROKE: NO. Chest X-Ray 05/07/17 07:42 IMPRESSION: Patchy left basilar airspace disease atelectasis versus pneumonia Assessment & Plan - Diagnosis (1) Acute hypoxemic respiratory failure Is this a current diagnosis for this admission?: Yes Plan: Secondary to pneumonia. Patient has been on BiPAP and antibiotics. Clinically he is improving from a pneumonia standpoint however he still having confusion but that is also improving. (2) Acute metabolic encephalopathy Is this a current diagnosis for this admission?: Yes Plan: Most likely secondary to the pneumonia. (3) Bilateral pneumonia Qualifiers: Pneumonia type: due to unspecified organism Lung location: lower lobe of lung Qualified Code(s): J18.9 - Pneumonia, unspecified organism Is this a current diagnosis for this admission?: Yes Plan: Continue with meropenem. Blood cultures have grown out strep viridans. Vancomycin was stopped yesterday (4) Hyponatremia Is this a current diagnosis for this admission?: Yes Plan: Resolved. (5) CHF (congestive heart failure) Qualifiers: Congestive heart failure type: unspecified congestive heart failure type Congestive heart failure chronicity: chronic Qualified Code(s): I50.9 - Heart failure, unspecified Is this a current diagnosis for this admission?: Yes Plan: Patient appears to be euvolemic. (6) Chronic kidney disease (CKD) Qualifiers: Chronic kidney disease stage: stage 3 (moderate) Qualified Code(s): N18.3 - Chronic kidney disease, stage 3 (moderate) Is this a current diagnosis for this admission?: Yes Plan: Creatinine has normalized. (7) Coronary artery disease Qualifiers: Coronary Disease-Associated Artery/Lesion type: [place] artery [place] vs. transplanted heart: [place] heart Associated angina: angina presence unspecified Qualified Code(s): I25.10 - Atherosclerotic heart disease of [place] coronary artery without angina pectoris Is this a current diagnosis for this admission?: Yes (8) Diabetes Qualifiers: Diabetes mellitus type: type 2 Diabetes mellitus complication status: with neurologic complications Diabetes mellitus complication detail: with polyneuropathy Diabetes mellitus engineering geologist insulin use: with residential use Qualified Code(s): E11.42 - Type 2 diabetes mellitus with diabetic polyneuropathy; Z79.4 - penitentiary (current) use of insulin; Z79.4 - clothes presser ( current) use of insulin; Z79.4 - clothes presser (current) use of insulin; Z79.4 - clothes presser (current) use of insulin Is this a current diagnosis for this admission?: Yes Plan: Continue with Lantus and sliding scale insulin. (9) Hypertension Qualifiers: Hypertension type: essential hypertension Qualified Code(s): I10 - Essential (primary) hypertension Is this a current diagnosis for this admission?: Yes Plan: Blood pressure means elevated. If they are still high tomorrow we will increase the Coreg more - Time Time Spent with patient: 25-34 minutes - Inpatient Certification Medical Necessity: Need Close Monitoring Due to Risk of Patient Decompensation, Need for IV Antibiotics
[2017-05-10 14:51] LABS: VANCOMYCIN,TROUGH < 5.0 ug/mL (5.0-20.0)
[2017-05-10] MEDS: HYDRALAZINE HCL 25 MG TABLET PO SCH (17:50)
[2017-05-10] MEDS: TAMSULOSIN HCL 0.4 MG CAP.SR.24H PO SCH (17:51)
[2017-05-10] MEDS: INSULIN GLARGINE,HUM.REC.ANLOG 300 UNIT/3 ML INSULN.PEN SUBCUT SCH (22:40)
[2017-05-10] MEDS: TRAZODONE HCL 50 MG TABLET PO SCH (22:47)
[2017-05-11] MEDS: MEROPENEM 1 GM in NORMAL SALINE 50 ML IV SCH ×3 (02:32→17:08)
[2017-05-11] MEDS: NORMAL SALINE 1000 ML 1,000 ML IV PRN ×2 (03:37→17:59)
[2017-05-11 05:44] LABS: ABSOLUTE BASOPHILS # (AUTO) 0.1 10^3/uL (0.0-0.2); ABSOLUTE EOSINOPHILS # (AUTO) 0.2 10^3/uL (0.0-0.6); ABSOLUTE LYMPHOCYTES (AUTO) 0.9 10^3/uL (0.5-4.7); ABSOLUTE MONOCYTES (AUTO) 0.5 10^3/uL (0.1-1.4); ABSOLUTE NEUT (AUTO) 4.2 10^3/uL (1.7-8.2); EOSINOPHILS % (AUTO) 3.7 % (0-6); HEMATOCRIT 37.1 % (37.9-51.0); HEMOGLOBIN 12.3 g/dL (13.5-17.0); MEAN CORPUSCULAR HEMOGLOBIN 29.4 pg (27.0-33.4); MEAN CORPUSCULAR HGB CONC 33.1 g/dL (32.0-36.0); MEAN CORPUSCULAR VOLUME 89 fl (80-97); MONOCYTES % (AUTO) 7.7 % (3-13); PLATELET COUNT 165 10^3/uL (150-450); RED BLOOD COUNT 4.18 10^6/uL (4.35-5.55); RED CELL DISTRIBUTION WIDTH 15.7 % (11.5-14.0); SEGMENTED NEUTROPHILS % (AUTO) 71.6 % (42-78); TOTAL CELLS COUNTED % (AUTO) 100 %; WHITE BLOOD COUNT 5.9 10^3/uL (4.0-10.5)
[2017-05-11 05:59] LABS: ANION GAP 11 (5-19); BLOOD UREA NITROGEN 24 mg/dL (7-20); CALCIUM 9.2 mg/dL (8.4-10.2); CARBON DIOXIDE 26 mmol/L (22-30); CHLORIDE 106 mmol/L (98-107); GLUCOSE 201 mg/dL (75-110); POTASSIUM 3.8 mmol/L (3.6-5.0); SODIUM 142.6 mmol/L (137-145)
[2017-05-11] MEDS: INSULIN LISPRO 100 UNIT/ML 3 ML VIAL SUBCUT PRN ×4 (08:56→22:01)
[2017-05-11] MEDS: ENOXAPARIN SODIUM INJ 40 MG/0.4 ML DISP.SYRIN SUBCUT SCH (09:54)
[2017-05-11] MEDS: FAMOTIDINE INJ/PF 20 MG/2 ML SDV IV SCH ×2 (09:54→22:00)
[2017-05-11] MEDS: ONDANSETRON HCL INJ/PF 4 MG/2 ML SDV IV PRN ×2 (09:54→17:49)
[2017-05-11] MEDS: GUAIFENESIN 600 MG TABLET.SA PO SCH ×2 (10:33→22:00)
[2017-05-11] MEDS: CLOPIDOGREL BISULFATE 75 MG TABLET PO SCH (10:33)
[2017-05-11] MEDS: CARVEDILOL 6.25 MG TABLET PO SCH ×2 (10:33→22:01)
[2017-05-11] MEDS: LACTOBACILLUS ACIDOPHILUS 250 MG TAB PO SCH ×2 (10:33→17:04)
[2017-05-11] MEDS: DOXYCYCLINE HYCLATE 100 MG in DEXTROSE 5%-WATER 250 ML IV SCH ×2 (10:34→22:01)
--- NOTE | 2017-05-11 13:52 | PDOC PROGRESS REPORT ---
Subjective Progress Note for:: 05/11/17 Subjective:: The patient is more alert and able to answer questions today. Reason For Visit: SEPSIS, PNEUMONIA, ACUTE METABOLIC ENCEPHALOPATHY Physical Exam Vital Signs: Temp Pulse Resp BP Pulse Ox 98.6 F 73 24 H 173/84 H 97 05/11/17 08:00 05/11/17 08:00 05/11/17 08:00 05/11/17 08:00 05/11/17 10:11 Intake & Output 05/10/17 05/11/17 05/12/17 06:59 06:59 06:59 Intake Total 1789 2902 Output Total 1680 1900 Balance 109 1002 Weight 107.2 kg 106.8 kg General appearance: PRESENT: no acute distress Eye exam: PRESENT: conjunctiva pink. ABSENT: scleral icterus Mouth exam: PRESENT: moist, tongue midline Neck exam: ABSENT: JVD Respiratory exam: PRESENT: clear to auscultation lewis. ABSENT: rales, rhonchi, wheezes Cardiovascular exam: PRESENT: RRR. ABSENT: diastolic murmur, rubs, systolic murmur GI/Abdominal exam: PRESENT: normal bowel sounds, soft. ABSENT: distended, guarding, mass, organolmegaly, rebound, tenderness Extremities exam: ABSENT: calf tenderness, clubbing, pedal edema Neurological exam: PRESENT: alert, awake, oriented to person, oriented to place. ABSENT: oriented to time, oriented to situation Psychiatric exam: PRESENT: appropriate affect Skin exam: PRESENT: dry, intact, warm. ABSENT: cyanosis, rash Results Laboratory Results: 05/11/17 05:16 05/11/17 05:16 05/10/17 05/11/17 05/11/17 13:46 05:16 05:16 WBC 5.9 RBC 4.18 L Hgb 12.3 L Hct 37.1 L MCV 89 MCH 29.4 MCHC 33.1 RDW 15.7 H Plt Count 165 Seg Neutrophils % 71.6 Lymphocytes % 16.0 Monocytes % 7.7 Eosinophils % 3.7 Basophils % 1.0 Absolute Neutrophils 4.2 Absolute Lymphocytes 0.9 Absolute Monocytes 0.5 Absolute Eosinophils 0.2 Absolute Basophils 0.1 Sodium 142.6 Potassium 3.8 Chloride 106 Carbon Dioxide 26 Anion Gap 11 BUN 24 H Creatinine 0.78 0.75 Est GFR ( Amer) > 60 > 60 Est GFR (Non-Af Amer) > 60 > 60 Glucose 201 H Calcium 9.2 05/06/17 10:07 Blood Blood Culture - Final NO GROWTH IN 5 DAYS 05/06/17 08:54 Blood Blood Culture - Final NO GROWTH IN 5 DAYS 05/05/17 05/06/17 17:50 04:43 NT-Pro-B Natriuret Pep 139 203 Impressions: Head CT 05/03/17 20:31 IMPRESSION: No acute intracranial findings. EVIDENCE OF ACUTE STROKE: NO. Chest X-Ray 05/07/17 07:42 IMPRESSION: Patchy left basilar airspace disease atelectasis versus pneumonia Assessment & Plan - Diagnosis (1) Acute hypoxemic respiratory failure Is this a current diagnosis for this admission?: Yes Plan: Secondary to pneumonia. Patient has been on BiPAP and antibiotics. Clinically he is improving from a pneumonia standpoint his mental status continues to improve. (2) Acute metabolic encephalopathy Is this a current diagnosis for this admission?: Yes Plan: Most likely secondary to the pneumonia. This is improving. (3) Bilateral pneumonia Qualifiers: Pneumonia type: due to unspecified organism Lung location: lower lobe of lung Qualified Code(s): J18.9 - Pneumonia, unspecified organism Is this a current diagnosis for this admission?: Yes Plan: Continue with meropenem. Blood cultures have grown out strep viridans. Will switch to Augmentin tomorrow if he is taking oral well. (4) Hyponatremia Is this a current diagnosis for this admission?: Yes Plan: Resolved. (5) CHF (congestive heart failure) Qualifiers: Congestive heart failure type: unspecified congestive heart failure type Congestive heart failure chronicity: chronic Qualified Code(s): I50.9 - Heart failure, unspecified Is this a current diagnosis for this admission?: Yes Plan: Patient appears to be euvolemic. (6) Chronic kidney disease (CKD) Qualifiers: Chronic kidney disease stage: stage 3 (moderate) Qualified Code(s): N18.3 - Chronic kidney disease, stage 3 (moderate) Is this a current diagnosis for this admission?: Yes Plan: Creatinine has normalized. (7) Coronary artery disease Qualifiers: Coronary Disease-Associated Artery/Lesion type: [place] artery [place] vs. transplanted heart: [place] heart Associated angina: angina presence unspecified Qualified Code(s): I25.10 - Atherosclerotic heart disease of [place] coronary artery without angina pectoris Is this a current diagnosis for this admission?: Yes (8) Diabetes Qualifiers: Diabetes mellitus type: type 2 Diabetes mellitus complication status: with neurologic complications Diabetes mellitus complication detail: with polyneuropathy Diabetes mellitus detention insulin use: with termite renewal inspector use Qualified Code(s): E11.42 - Type 2 diabetes mellitus with diabetic polyneuropathy; Z79.4 - intermission coordinator (current) use of insulin; Z79.4 - shelter ( current) use of insulin; Z79.4 - intermission coordinator (current) use of insulin; Z79.4 - shelter (current) use of insulin Is this a current diagnosis for this admission?: Yes Plan: Continue with Lantus and sliding scale insulin. (9) Hypertension Qualifiers: Hypertension type: essential hypertension Qualified Code(s): I10 - Essential (primary) hypertension Is this a current diagnosis for this admission?: Yes Plan: Blood pressure means elevated. Will increase the Coreg. - Time Time Spent with patient: 25-34 minutes - Inpatient Certification Medical Necessity: Need Close Monitoring Due to Risk of Patient Decompensation
[2017-05-11] MEDS: HYDRALAZINE HCL 25 MG TABLET PO SCH (17:04)
[2017-05-11] MEDS: TAMSULOSIN HCL 0.4 MG CAP.SR.24H PO SCH (17:05)
[2017-05-11] MEDS: TRAZODONE HCL 50 MG TABLET PO SCH (22:00)
[2017-05-11] MEDS: INSULIN GLARGINE,HUM.REC.ANLOG 300 UNIT/3 ML INSULN.PEN SUBCUT SCH (22:01)
[2017-05-12] MEDS: MEROPENEM 1 GM in NORMAL SALINE 50 ML IV SCH ×2 (02:21→09:55)
[2017-05-12] MEDS: ACETAMINOPHEN 325 MG TABLET PO PRN ×2 (04:54→20:17)
[2017-05-12 06:39] LABS: ABSOLUTE EOSINOPHILS # (AUTO) 0.2 10^3/uL (0.0-0.6); ABSOLUTE LYMPHOCYTES (AUTO) 0.9 10^3/uL (0.5-4.7); ABSOLUTE MONOCYTES (AUTO) 0.4 10^3/uL (0.1-1.4); ABSOLUTE NEUT (AUTO) 3.7 10^3/uL (1.7-8.2); BASOPHILS % (AUTO) 0.8 % (0-2); EOSINOPHILS % (AUTO) 3.7 % (0-6); HEMATOCRIT 35.1 % (37.9-51.0); HEMOGLOBIN 11.6 g/dL (13.5-17.0); LYMPHOCYTES % (AUTO) 17.3 % (13-45); MEAN CORPUSCULAR HEMOGLOBIN 29.2 pg (27.0-33.4); MEAN CORPUSCULAR HGB CONC 33.1 g/dL (32.0-36.0); MEAN CORPUSCULAR VOLUME 88 fl (80-97); MONOCYTES % (AUTO) 7.8 % (3-13); PLATELET COUNT 141 10^3/uL (150-450); RED BLOOD COUNT 3.98 10^6/uL (4.35-5.55); SEGMENTED NEUTROPHILS % (AUTO) 70.4 % (42-78); TOTAL CELLS COUNTED % (AUTO) 100 %; WHITE BLOOD COUNT 5.2 10^3/uL (4.0-10.5)
[2017-05-12 07:13] LABS: ANION GAP 7 (5-19); BLOOD UREA NITROGEN 25 mg/dL (7-20); CALCIUM 8.8 mg/dL (8.4-10.2); CARBON DIOXIDE 28 mmol/L (22-30); CHLORIDE 104 mmol/L (98-107); GLUCOSE 207 mg/dL (75-110); POTASSIUM 3.8 mmol/L (3.6-5.0)
[2017-05-12] MEDS: INSULIN LISPRO 100 UNIT/ML 3 ML VIAL SUBCUT PRN ×4 (08:39→22:23)
[2017-05-12] MEDS: LACTOBACILLUS ACIDOPHILUS 250 MG TAB PO SCH ×2 (09:48→17:46)
[2017-05-12] MEDS: CARVEDILOL 6.25 MG TABLET PO SCH ×2 (09:48→22:24)
[2017-05-12] MEDS: CLOPIDOGREL BISULFATE 75 MG TABLET PO SCH (09:48)
[2017-05-12] MEDS: GUAIFENESIN 600 MG TABLET.SA PO SCH ×2 (09:48→22:24)
[2017-05-12] MEDS: ENOXAPARIN SODIUM INJ 40 MG/0.4 ML DISP.SYRIN SUBCUT SCH (09:49)
[2017-05-12] MEDS: FAMOTIDINE INJ/PF 20 MG/2 ML SDV IV SCH ×2 (09:49→22:23)
--- NOTE | 2017-05-12 10:36 | PDOC PROGRESS REPORT ---
Subjective Progress Note for:: 05/12/17 Subjective:: The patient is more alert and able to answer questions today but is still confused. Reason For Visit: SEPSIS, PNEUMONIA, ACUTE METABOLIC ENCEPHALOPATHY Physical Exam Vital Signs: Temp Pulse Resp BP Pulse Ox 98.8 F 61 22 H 161/66 H 92 05/12/17 03:18 05/12/17 07:00 05/12/17 03:18 05/12/17 03:18 05/12/17 03:18 Intake & Output 05/11/17 05/12/17 05/13/17 06:59 06:59 06:59 Intake Total 2902 1677 Output Total 1900 1400 Balance 1002 277 Weight 106.8 kg 107.3 kg General appearance: PRESENT: no acute distress Eye exam: PRESENT: conjunctiva pink. ABSENT: scleral icterus Ear exam: PRESENT: normal external ear exam Mouth exam: PRESENT: moist, tongue midline Neck exam: ABSENT: JVD Respiratory exam: PRESENT: clear to auscultation lewis. ABSENT: rales, rhonchi, wheezes Cardiovascular exam: PRESENT: RRR. ABSENT: diastolic murmur, rubs, systolic murmur GI/Abdominal exam: PRESENT: normal bowel sounds, soft. ABSENT: distended, guarding, mass, organolmegaly, rebound, tenderness Extremities exam: ABSENT: calf tenderness, clubbing, pedal edema Neurological exam: PRESENT: awake, oriented to person, oriented to place. ABSENT: oriented to time, oriented to situation Psychiatric exam: PRESENT: appropriate affect Skin exam: PRESENT: dry, intact, warm. ABSENT: cyanosis, rash Results Laboratory Results: 05/12/17 05:50 05/12/17 05:50 05/12/17 05/12/17 05:50 05:50 WBC 5.2 RBC 3.98 L Hgb 11.6 L Hct 35.1 L MCV 88 MCH 29.2 MCHC 33.1 RDW 16.0 H Plt Count 141 L Seg Neutrophils % 70.4 Lymphocytes % 17.3 Monocytes % 7.8 Eosinophils % 3.7 Basophils % 0.8 Absolute Neutrophils 3.7 Absolute Lymphocytes 0.9 Absolute Monocytes 0.4 Absolute Eosinophils 0.2 Absolute Basophils 0.0 Sodium 139.0 Potassium 3.8 Chloride 104 Carbon Dioxide 28 Anion Gap 7 BUN 25 H Creatinine 0.77 Est GFR ( Amer) > 60 Est GFR (Non-Af Amer) > 60 Glucose 207 H Calcium 8.8 05/06/17 10:07 Blood Blood Culture - Final NO GROWTH IN 5 DAYS 05/06/17 08:54 Blood Blood Culture - Final NO GROWTH IN 5 DAYS 05/05/17 05/06/17 17:50 04:43 NT-Pro-B Natriuret Pep 139 203 Impressions: Head CT 05/03/17 20:31 IMPRESSION: No acute intracranial findings. EVIDENCE OF ACUTE STROKE: NO. Chest X-Ray 05/07/17 07:42 IMPRESSION: Patchy left basilar airspace disease atelectasis versus pneumonia Assessment & Plan - Diagnosis (1) Acute hypoxemic respiratory failure Is this a current diagnosis for this admission?: Yes Plan: Secondary to pneumonia. Patient has been on BiPAP and antibiotics. Clinically he is improving from a pneumonia standpoint his mental status continues to improve. (2) Acute metabolic encephalopathy Is this a current diagnosis for this admission?: Yes Plan: Most likely secondary to the pneumonia. This is improving. (3) Bilateral pneumonia Qualifiers: Pneumonia type: due to unspecified organism Lung location: lower lobe of lung Qualified Code(s): J18.9 - Pneumonia, unspecified organism Is this a current diagnosis for this admission?: Yes Plan: Continue with meropenem. Blood cultures have grown out strep viridans. Will switch to Augmentin (4) Hyponatremia Is this a current diagnosis for this admission?: Yes Plan: Resolved. (5) CHF (congestive heart failure) Qualifiers: Congestive heart failure type: unspecified congestive heart failure type Congestive heart failure chronicity: chronic Qualified Code(s): I50.9 - Heart failure, unspecified Is this a current diagnosis for this admission?: Yes Plan: Patient appears to be euvolemic. (6) Chronic kidney disease (CKD) Qualifiers: Chronic kidney disease stage: stage 3 (moderate) Qualified Code(s): N18.3 - Chronic kidney disease, stage 3 (moderate) Is this a current diagnosis for this admission?: Yes Plan: Creatinine has normalized. (7) Coronary artery disease Qualifiers: Coronary Disease-Associated Artery/Lesion type: [place] artery [place] vs. transplanted heart: [place] heart Associated angina: angina presence unspecified Qualified Code(s): I25.10 - Atherosclerotic heart disease of [place] coronary artery without angina pectoris Is this a current diagnosis for this admission?: Yes (8) Diabetes Qualifiers: Diabetes mellitus type: type 2 Diabetes mellitus complication status: with neurologic complications Diabetes mellitus complication detail: with polyneuropathy Diabetes mellitus sorting livestock worker insulin use: with sorting livestock worker use Qualified Code(s): E11.42 - Type 2 diabetes mellitus with diabetic polyneuropathy; Z79.4 - process design engineer (current) use of insulin; Z79.4 - process design engineer ( current) use of insulin; Z79.4 - care home (current) use of insulin; Z79.4 - care home (current) use of insulin Is this a current diagnosis for this admission?: Yes Plan: Continue with Lantus and sliding scale insulin. (9) Hypertension Qualifiers: Hypertension type: essential hypertension Qualified Code(s): I10 - Essential (primary) hypertension Is this a current diagnosis for this admission?: Yes Plan: Continue with Coreg - Time Time Spent with patient: 25-34 minutes - Inpatient Certification Medical Necessity: Need Close Monitoring Due to Risk of Patient Decompensation
[2017-05-12] MEDS: DOXYCYCLINE HYCLATE 100 MG in DEXTROSE 5%-WATER 250 ML IV SCH ×2 (11:51→22:24)
[2017-05-12] MEDS: TAMSULOSIN HCL 0.4 MG CAP.SR.24H PO SCH (17:45)
[2017-05-12] MEDS: HYDRALAZINE HCL 25 MG TABLET PO SCH (17:45)
[2017-05-12] MEDS: NORMAL SALINE 1000 ML 1,000 ML IV PRN (19:22)
[2017-05-12] MEDS: LORAZEPAM INJ 2 MG/1 ML VIAL IV PRN (22:23)
[2017-05-12] MEDS: INSULIN GLARGINE,HUM.REC.ANLOG 300 UNIT/3 ML INSULN.PEN SUBCUT SCH (22:23)
[2017-05-12] MEDS: TRAZODONE HCL 50 MG TABLET PO SCH (22:24)
[2017-05-13] MEDS: ACETAMINOPHEN 325 MG TABLET PO PRN (05:06)
[2017-05-13 06:08] LABS: ABSOLUTE BASOPHILS # (AUTO) 0.1 10^3/uL (0.0-0.2); ABSOLUTE EOSINOPHILS # (AUTO) 0.2 10^3/uL (0.0-0.6); ABSOLUTE LYMPHOCYTES (AUTO) 1.1 10^3/uL (0.5-4.7); ABSOLUTE MONOCYTES (AUTO) 0.5 10^3/uL (0.1-1.4); ABSOLUTE NEUT (AUTO) 4.4 10^3/uL (1.7-8.2); EOSINOPHILS % (AUTO) 3.8 % (0-6); HEMATOCRIT 37.5 % (37.9-51.0); HEMOGLOBIN 12.4 g/dL (13.5-17.0); MEAN CORPUSCULAR HGB CONC 33.2 g/dL (32.0-36.0); MEAN CORPUSCULAR VOLUME 88 fl (80-97); MONOCYTES % (AUTO) 7.6 % (3-13); PLATELET COUNT 166 10^3/uL (150-450); RED BLOOD COUNT 4.29 10^6/uL (4.35-5.55); RED CELL DISTRIBUTION WIDTH 16.1 % (11.5-14.0); SEGMENTED NEUTROPHILS % (AUTO) 69.6 % (42-78); TOTAL CELLS COUNTED % (AUTO) 100 %; WHITE BLOOD COUNT 6.4 10^3/uL (4.0-10.5)
[2017-05-13 06:19] LABS: ANION GAP 8 (5-19); BLOOD UREA NITROGEN 19 mg/dL (7-20); CARBON DIOXIDE 29 mmol/L (22-30); CHLORIDE 102 mmol/L (98-107); GLUCOSE 182 mg/dL (75-110); POTASSIUM 3.8 mmol/L (3.6-5.0); SODIUM 138.8 mmol/L (137-145)
[2017-05-13] MEDS: ENOXAPARIN SODIUM INJ 40 MG/0.4 ML DISP.SYRIN SUBCUT SCH (09:22)
[2017-05-13] MEDS: LACTOBACILLUS ACIDOPHILUS 250 MG TAB PO SCH ×2 (09:23→17:10)
[2017-05-13] MEDS: CARVEDILOL 6.25 MG TABLET PO SCH ×2 (09:23→22:59)
[2017-05-13] MEDS: CLOPIDOGREL BISULFATE 75 MG TABLET PO SCH (09:24)
[2017-05-13] MEDS: FAMOTIDINE INJ/PF 20 MG/2 ML SDV IV SCH ×2 (09:24→22:59)
[2017-05-13] MEDS: GUAIFENESIN 600 MG TABLET.SA PO SCH ×2 (09:24→22:59)
[2017-05-13] MEDS: DOXYCYCLINE HYCLATE 100 MG in DEXTROSE 5%-WATER 250 ML IV SCH ×2 (09:26→23:00)
[2017-05-13] MEDS ORDERED: CARVEDILOL 6.25 MG TABLET ONE (09:42)
[2017-05-13] MEDS: INSULIN LISPRO 100 UNIT/ML 3 ML VIAL SUBCUT PRN ×4 (09:54→22:59)
--- NOTE | 2017-05-13 11:32 | RADIOLOGY REPORT (SQ) ---
EXAM DESCRIPTION: CT HEAD WITHOUT COMPLETED DATE/TIME: 05/13/2017 11:14 am REASON FOR STUDY: confusion COMPARISON: 05/03/2017 TECHNIQUE: Axial images acquired through the brain without intravenous contrast. Images reviewed wi th bone, brain and subdural windows. Images stored on PACS. All CT scanners at this facility use dose modulation, iterative reconstruction, and/or weight based d osing when appropriate to reduce radiation dose to as low as reasonably achievable (ALARA). [facility]: Dose Right [facility]: CareDose [facility]: Dose Right [facility]: Teradose 4D [facility]: Smart FilmLoop RADIATION DOSE: CT Rad equipment meets quality standard of care and radiation dose reduction techniq ues were employed. CTDIvol: 64.6 mGy. DLP: 1163 mGy-cm.mGy. LIMITATIONS: Motion. Positioning. FINDINGS: VENTRICLES: Prominent. CEREBRUM: No masses. No hemorrhage. No midline shift. Areas of low density in the white matter mos t likely due to chronic micro-vascular ischemic change. No evidence for acute infarction. CEREBELLUM: No masses. No hemorrhage. No alteration of density. No evidence for acute infarction. EXTRAAXIAL SPACES: Age-related involutional change. No fluid collections. No masses. ORBITS AND GLOBE: No intra- or extraconal masses. Normal contour of globe without masses. CALVARIUM: No fracture. PARANASAL SINUSES: No fluid or mucosal thickening. SOFT TISSUES: No mass or hematoma. OTHER: No other significant finding. IMPRESSION: No acute abnormality in the brain. EVIDENCE OF ACUTE STROKE: NO. TECHNICAL DOCUMENTATION: JOB ID: [id number] Quality ID # [id number]: Final reports with documentation of one or more dose reduction techniques (e.g., Au tomated exposure control, adjustment of the mA and/or kV according to patient size, use of iterative reconstruction technique) 2010 [employer]- All Rights Reserved
--- NOTE | 2017-05-13 13:40 | PDOC PROGRESS REPORT ---
Subjective Progress Note for:: 05/13/17 Subjective:: 71-year-old gentleman admitted with metabolic encephalopathy. Patient was found to have pneumonia as the cause. Patient has been treated with antibiotics but continues to have confusion. He was initially treated with Rocephin and vancomycin as well as doxycycline because of tick exposure. Lyme titers are still pending at this time. His vancomycin and Rocephin were stopped but he is continued on the doxycycline. He is more alert now than when he first was admitted. The patient's family would like for him to go to [place] where all of his children live. They plan on taking him on Saturday. Reason For Visit: SEPSIS, PNEUMONIA, ACUTE METABOLIC ENCEPHALOPATHY Physical Exam Vital Signs: Temp Pulse Resp BP Pulse Ox 98.2 F 56 L 18 185/81 H 93 05/13/17 11:49 05/13/17 11:49 05/13/17 11:49 05/13/17 11:49 05/13/17 11:49 Intake & Output 05/12/17 05/13/17 05/14/17 06:59 06:59 06:59 Intake Total 1677 1889 Output Total 1400 2200 400 Balance 277 -311 -400 Weight 107.3 kg 106.4 kg General appearance: PRESENT: no acute distress Eye exam: PRESENT: conjunctiva pink. ABSENT: scleral icterus Mouth exam: PRESENT: moist, tongue midline Neck exam: ABSENT: JVD Respiratory exam: PRESENT: clear to auscultation lewis. ABSENT: rales, rhonchi, wheezes Cardiovascular exam: PRESENT: RRR. ABSENT: diastolic murmur, rubs, systolic murmur GI/Abdominal exam: PRESENT: normal bowel sounds, soft. ABSENT: distended, guarding, mass, organolmegaly, rebound, tenderness Extremities exam: ABSENT: calf tenderness, clubbing, pedal edema Neurological exam: PRESENT: alert, awake, oriented to person, oriented to place , CN II-XII grossly intact. ABSENT: oriented to time, oriented to situation, motor sensory deficit Psychiatric exam: PRESENT: appropriate affect Skin exam: PRESENT: dry, intact, warm. ABSENT: cyanosis, rash Results Laboratory Results: 05/13/17 05:15 05/13/17 05:15 05/12/17 05/13/17 05/13/17 05:50 05:15 05:15 WBC 6.4 RBC 4.29 L Hgb 12.4 L Hct 37.5 L MCV 88 MCH 29.0 MCHC 33.2 RDW 16.1 H Plt Count 166 Seg Neutrophils % 69.6 Lymphocytes % 18.0 Monocytes % 7.6 Eosinophils % 3.8 Basophils % 1.0 Absolute Neutrophils 4.4 Absolute Lymphocytes 1.1 Absolute Monocytes 0.5 Absolute Eosinophils 0.2 Absolute Basophils 0.1 Sodium 138.8 Potassium 3.8 Chloride 102 Carbon Dioxide 29 Anion Gap 8 BUN 19 Creatinine 0.74 Est GFR ( Amer) > 60 Est GFR (Non-Af Amer) > 60 Glucose 182 H Calcium 9.0 Magnesium 1.8 05/05/17 05/06/17 17:50 04:43 NT-Pro-B Natriuret Pep 139 203 Impressions: Chest X-Ray 05/07/17 07:42 IMPRESSION: Patchy left basilar airspace disease atelectasis versus pneumonia Head CT 05/13/17 00:00 IMPRESSION: No acute abnormality in the brain. EVIDENCE OF ACUTE STROKE: NO. Assessment & Plan - Diagnosis (1) Acute hypoxemic respiratory failure Is this a current diagnosis for this admission?: Yes Plan: Secondary to pneumonia. Initially was on vancomycin and Rocephin. Patient now is just on oral doxycycline. Clinically he is improving from a pneumonia standpoint his mental status continues to improve. (2) Acute metabolic encephalopathy Is this a current diagnosis for this admission?: Yes Plan: Most likely secondary to the pneumonia. This is improving. (3) Bilateral pneumonia Qualifiers: Pneumonia type: due to unspecified organism Lung location: lower lobe of lung Qualified Code(s): J18.9 - Pneumonia, unspecified organism Is this a current diagnosis for this admission?: Yes Plan: Blood cultures have grown out strep viridans. Patient was initially treated with Rocephin and vancomycin. He currently is just on doxycycline. He is allergic to penicillins and does have a history of tick bites. Lyme titers are still pending. (4) Hyponatremia Is this a current diagnosis for this admission?: Yes Plan: Resolved. (5) CHF (congestive heart failure) Qualifiers: Congestive heart failure type: unspecified congestive heart failure type Congestive heart failure chronicity: chronic Qualified Code(s): I50.9 - Heart failure, unspecified Is this a current diagnosis for this admission?: Yes Plan: Patient appears to be euvolemic. (6) Chronic kidney disease (CKD) Qualifiers: Chronic kidney disease stage: stage 3 (moderate) Qualified Code(s): N18.3 - Chronic kidney disease, stage 3 (moderate) Is this a current diagnosis for this admission?: Yes Plan: Creatinine has normalized. (7) Coronary artery disease Qualifiers: Coronary Disease-Associated Artery/Lesion type: [place] artery [place] vs. transplanted heart: [place] heart Associated angina: angina presence unspecified Qualified Code(s): I25.10 - Atherosclerotic heart disease of [place] coronary artery without angina pectoris Is this a current diagnosis for this admission?: Yes (8) Diabetes Qualifiers: Diabetes mellitus type: type 2 Diabetes mellitus complication status: with neurologic complications Diabetes mellitus complication detail: with polyneuropathy Diabetes mellitus detention insulin use: with intermediate project manager use Qualified Code(s): E11.42 - Type 2 diabetes mellitus with diabetic polyneuropathy; Z79.4 - rn long term care (current) use of insulin; Z79.4 - rn long term care ( current) use of insulin; Z79.4 - rn long term care (current) use of insulin; Z79.4 - rn long term care (current) use of insulin Is this a current diagnosis for this admission?: Yes Plan: Continue with sliding scale insulin and increase the Lantus. (9) Hypertension Qualifiers: Hypertension type: essential hypertension Qualified Code(s): I10 - Essential (primary) hypertension Is this a current diagnosis for this admission?: Yes Plan: Continue with Coreg - Time Time Spent with patient: 25-34 minutes - Inpatient Certification Medical Necessity: Need Close Monitoring Due to Risk of Patient Decompensation - Plan Summary Plan Summary: The patient is planning on taking the patient to [place] where the family lives and find rehab for him to go to there
[2017-05-13] MEDS ORDERED: HYDRALAZINE HCL 25 MG TABLET PO ONE (16:15)
[2017-05-13] MEDS: TAMSULOSIN HCL 0.4 MG CAP.SR.24H PO SCH (17:11)
[2017-05-13] MEDS ORDERED: BISACODYL 5 MG TABEC PO ONE (20:00)
[2017-05-13] MEDS: NORMAL SALINE 1000 ML 1,000 ML IV PRN (21:46)
[2017-05-13] MEDS: TRAZODONE HCL 50 MG TABLET PO SCH (22:59)
[2017-05-13] MEDS: INSULIN GLARGINE,HUM.REC.ANLOG 300 UNIT/3 ML INSULN.PEN SUBCUT SCH (22:59)
[2017-05-14 05:51] LABS: ABSOLUTE BASOPHILS # (AUTO) 0.1 10^3/uL (0.0-0.2); ABSOLUTE EOSINOPHILS # (AUTO) 0.2 10^3/uL (0.0-0.6); ABSOLUTE LYMPHOCYTES (AUTO) 1.1 10^3/uL (0.5-4.7); ABSOLUTE MONOCYTES (AUTO) 0.5 10^3/uL (0.1-1.4); ABSOLUTE NEUT (AUTO) 4.4 10^3/uL (1.7-8.2); BASOPHILS % (AUTO) 1.2 % (0-2); EOSINOPHILS % (AUTO) 2.8 % (0-6); HEMATOCRIT 37.5 % (37.9-51.0); HEMOGLOBIN 12.6 g/dL (13.5-17.0); MEAN CORPUSCULAR HEMOGLOBIN 29.2 pg (27.0-33.4); MEAN CORPUSCULAR HGB CONC 33.6 g/dL (32.0-36.0); MEAN CORPUSCULAR VOLUME 87 fl (80-97); MONOCYTES % (AUTO) 8.1 % (3-13); PLATELET COUNT 170 10^3/uL (150-450); RED BLOOD COUNT 4.31 10^6/uL (4.35-5.55); RED CELL DISTRIBUTION WIDTH 15.8 % (11.5-14.0); SEGMENTED NEUTROPHILS % (AUTO) 69.9 % (42-78); TOTAL CELLS COUNTED % (AUTO) 100 %; WHITE BLOOD COUNT 6.3 10^3/uL (4.0-10.5)
[2017-05-14] MEDS: HYDRALAZINE HCL 25 MG TABLET PO SCH ×2 (06:00→17:45)
[2017-05-14 06:25] LABS: ANION GAP 10 (5-19); BLOOD UREA NITROGEN 18 mg/dL (7-20); CALCIUM 8.9 mg/dL (8.4-10.2); CARBON DIOXIDE 26 mmol/L (22-30); CHLORIDE 102 mmol/L (98-107); GLUCOSE 171 mg/dL (75-110); POTASSIUM 3.6 mmol/L (3.6-5.0); SODIUM 138.3 mmol/L (137-145)
[2017-05-14] MEDS ORDERED: LEVALBUTEROL HCL NEB 1.25 MG/3 ML AMPUL NEB PRN (11:07)
[2017-05-14] MEDS ORDERED: ONDANSETRON 4 MG TAB.RAPDIS PO PRN (11:07)
[2017-05-14] MEDS: ENOXAPARIN SODIUM INJ 40 MG/0.4 ML DISP.SYRIN SUBCUT SCH (11:23)
[2017-05-14] MEDS: CLOPIDOGREL BISULFATE 75 MG TABLET PO SCH (11:24)
[2017-05-14] MEDS: GUAIFENESIN 600 MG TABLET.SA PO SCH ×2 (11:25→22:50)
[2017-05-14] MEDS: CARVEDILOL 6.25 MG TABLET PO SCH ×2 (11:25→20:11)
[2017-05-14] MEDS: BISACODYL 5 MG TABEC PO SCH ×2 (11:26→17:45)
[2017-05-14] MEDS: LACTOBACILLUS ACIDOPHILUS 250 MG TAB PO SCH ×2 (11:27→17:45)
[2017-05-14] MEDS: DOXYCYCLINE HYCLATE 100 MG in DEXTROSE 5%-WATER 250 ML IV SCH ×2 (11:28→22:46)
[2017-05-14] MEDS: INSULIN LISPRO 100 UNIT/ML 3 ML VIAL SUBCUT PRN (11:30)
--- NOTE | 2017-05-14 12:18 | PROGRESS NOTE E ---
Progress Note NAME: FABI FRANCISCO : 1945 AGE: 71Y DATE: 05/14/2017 ROOM: [facility] SUBJECTIVE: The patient is currently lying in bed. Upon my rounding, the patient appeared he had pulled his own oxygen off. Checked the patient's O2 saturations, and at that time, they were found to be 80% on room air. I applied 3 L of oxygen and the patient's O2 saturations improved to 91%. The patient has had no reported episodes of vomiting nor diarrhea. The patient does remain quite restless. The patient has been afebrile. His blood pressures have been in a good range. The patient is unable to voice any concerns at this time. I did discuss the case with the patient's daughter. REVIEW OF SYSTEMS: Rest of review of systems is negative. MEDICATIONS: Medications have been reviewed. OBJECTIVE: GENERAL: The patient is a 71-year-old male who is awake, alert. He is able to follow simple commands, but does not appear to be distressed. VITAL SIGNS: Temperature is 97.3, pulse 87, respirations 16, blood pressure 147/93, oxygen saturation is 91% on 3 L nasal cannula. SKIN: Warm and dry. No rash. She is not diaphoretic. HEENT: Pupils equal, round, and reactive to light and accommodation. Conjunctiva is pink. There is no JVP. CARDIOVASCULAR SYSTEM: Heart is regular. There is no rub. CHEST: Diminished, symmetrical, unlabored. ABDOMEN: Soft, nontender, nondistended. BACK: No CVA tenderness or sacral edema. EXTREMITIES: No clubbing, cyanosis, edema. PSYCHIATRIC: The patient is still confused. DIAGNOSTICS: Lab values are as follows: Hematology obtained on 05/14/2017: WBCs are 6.3, hemoglobin is 12.6, hematocrit is 37.4, platelet count is 170,000. Chemistry obtained on 05/14/2017: Sodium is 138, potassium 3.6, chloride is 102, carbon dioxide 28, BUN 18, creatinine is 0.72, glucose 171, calcium is 8.9. Blood cultures obtained on 05/06/2017 reveal no growth. Blood cultures obtained on 05/03/2017 did reveal strep viridans. IMPRESSION AND PLAN: 1. BILATERAL COMMUNITY-ACQUIRED PNEUMONIA, MOST LIKELY STREPTOCOCCUS. Will continue the patient's current doxycycline. The patient has had significant improvement overall of symptoms. Will follow. 2. ACUTE HYPOXEMIC RESPIRATORY FAILURE. It appears that this most likely is an element of chronicity given the severity of the patient's obstructive sleep apnea. The patient had ever increasing daytime sleepiness and had had mental status changes actually for 2 weeks. Do feel there may be an element of hypoxic brain injury here. Will repeat the patient's blood gas and obtain contrasted imaging and follow. 3. ACUTE METABOLIC ENCEPHALOPATHY. This is slowly improving. Could possibly be due to an acute infectious process as well as prolonged hypoxic events. 4. HYPONATREMIA. This is resolved. 5. CHRONIC DIASTOLIC CONGESTIVE HEART FAILURE. The patient appears optivolemic. 6. CHRONIC KIDNEY DISEASE STAGE 3. The patient's creatinine is back to baseline. 7. CORONARY ARTERY DISEASE. Will continue the patient's home medication. 8. DIABETES MELLITUS TYPE 2. Will continue the patient's home medications. 9. HYPERTENSION. Will continue the patient's home meds. DISPOSITION: The patient is a DO NOT RESUSCITATE/DO NOT INTUBATE. Pending patient's symptomatology and diagnostic findings, will re-evaluate in the a.m. Will remove the patient's Hansen. Time spent on this followup including assessment, plan, physical examination, patient education, and review of records is 35 minutes. ADVANCED CARE PLANNING: The patient is a 71-year-old male with a past medical history of obstructive sleep apnea with noncompliance with CPAP as well as coronary artery disease. The patient was brought into the emergency department due to confusion and hypoxia. Did have a meeting with the patient who was unable to provide much input other than he did not wish for life support, as well as the patient's daughter, Tyra, who is his medical power of deputy attorney general. The patient does have chronic underlying illness and has also had a documented history of noncompliance, especially with CPAP. The patient has had much difficulty with his mental status during this admission, which does appear to be an acute episode for him. According to the daughter, the patient was able to run errands, pay his own bills, and so forth, and in the past 2 weeks, has had excessive daytime sleepiness and confusion, which eventually brought him to the emergency department. The patient's MRI was unable to be obtained given coronary stent placement, and the time of this report, Lyme titer is pending. The patient's B12, ammonia, and other levels have been unremarkable. Although the patient's mental status has improved, it is still quite altered, which is odd for this patient. The daughter is in agreeance the patient may have a compounding hypoxic brain injury due to the severity of his obstructive sleep apnea in which the patient was compensated and then pneumonia just pushed him over the edge and he decompensated. The daughter, who is the medical power of deputy attorney general, stated that the patient has voiced that he did not want to be resuscitated and wishes for DNR status. Will proceed with these wishes and proceed with rehab placement in [place]. Time spent on this advanced care planning including discussion with both the patient and the patient's daughter is 35 minutes. DICTATING PHYSICIAN: DARRELL PALUMBO NP [id number]#: [id number] ID: [id number] JOB#: [id number] ACCT: [id number] cc: >
[2017-05-14 12:38] LABS: VENOUS BLOOD BASE EXCESS 4.2 mmol/L; VENOUS BLOOD HCO3 26.6 mmol/L (20-32); VENOUS BLOOD PCO2 33.2 mmHg (35-63); VENOUS BLOOD PH 7.52 (7.30-7.42)
[2017-05-14] MEDS: TAMSULOSIN HCL 0.4 MG CAP.SR.24H PO SCH (17:46)
[2017-05-14] MEDS: LORAZEPAM 1 MG TABLET PO PRN (20:11)
[2017-05-14] MEDS: TRAZODONE HCL 50 MG TABLET PO SCH (22:50)
[2017-05-14] MEDS: INSULIN GLARGINE,HUM.REC.ANLOG 300 UNIT/3 ML INSULN.PEN SUBCUT SCH (22:51)
[2017-05-15] MEDS: HYDRALAZINE HCL 25 MG TABLET PO SCH ×2 (07:00→17:48)
[2017-05-15 07:14] LABS: LYME DISEASE IGM AB <0.80 index (0.00-0.79)
--- NOTE | 2017-05-15 08:42 | RADIOLOGY REPORT (SQ) ---
EXAM DESCRIPTION: MRI HEAD WITHOUT COMPLETED DATE/TIME: 05/15/2017 8:23 am REASON FOR STUDY: Encephalopathy COMPARISON: CT dated 05/13/2017. TECHNIQUE: Multiplanar imaging includes non-contrasted T1, T2, FLAIR, and diffusion with ADC map seq uences. Images stored on PACS. LIMITATIONS: None. FINDINGS: ANATOMY: No anomalies. Normal vascular flow voids. Pituitary fossa normal. CSF SPACES: Atrophy induced prominence of ventricles and CSF spaces. CEREBRUM: High signal intensity lesions scattered throughout the white matter on FLAIR imaging with d istribution suggesting micro-vascular ischemic changes. Old infarct in the left occipital lobe. No evidence of hemorrhage, mass, or extraaxial fluid collection. POSTERIOR FOSSA: No signal alteration. No hemorrhage. No edema, masses or mass effect. Internal galindo tory canals, cerebello-pontine angles, mastoids normal. DIFFUSION IMAGING: Negative for acute or sub-acute infarction. ORBITS: No masses. Globes normal. PARANASAL SINUSES: No fluid levels. Mucosa normal. OTHER: No other significant finding. IMPRESSION: ATROPHY AND CHRONIC MICRO-VASCULAR ISCHEMIC CHANGES. OLD INFARCT IN THE LEFT OCCIPITAL LOBE. NO ACUTE FINDINGS. EVIDENCE OF ACUTE STROKE: NO. TECHNICAL DOCUMENTATION: JOB ID: [id number] [employer]- All Rights Reserved
[2017-05-15] MEDS: ENOXAPARIN SODIUM INJ 40 MG/0.4 ML DISP.SYRIN SUBCUT SCH (09:39)
[2017-05-15] MEDS: GUAIFENESIN 600 MG TABLET.SA PO SCH ×2 (09:41→22:19)
[2017-05-15] MEDS: LACTOBACILLUS ACIDOPHILUS 250 MG TAB PO SCH ×2 (09:42→17:47)
[2017-05-15] MEDS: CLOPIDOGREL BISULFATE 75 MG TABLET PO SCH (09:42)
[2017-05-15] MEDS: BISACODYL 5 MG TABEC PO SCH ×2 (09:42→17:40)
[2017-05-15] MEDS: CARVEDILOL 6.25 MG TABLET PO SCH ×2 (09:43→22:11)
[2017-05-15] MEDS: DOXYCYCLINE HYCLATE 100 MG in DEXTROSE 5%-WATER 250 ML IV SCH (09:50)
[2017-05-15] MEDS ORDERED: HALOPERIDOL 5 MG TABLET PO ONE (11:30)
[2017-05-15] MEDS ORDERED: ATORVASTATIN CALCIUM 40 MG TABLET PO ONE (12:00)
--- NOTE | 2017-05-15 12:13 | PROGRESS NOTE E ---
Progress Note NAME: FABI FRANCISCO : 1945 AGE: 71Y DATE: 05/15/2017 ROOM: 328 SUBJECTIVE: The patient is currently lying in bed. The patient will awaken and converse, but goes right back to sleep. I have discussed the excessive daytime sleepiness with the patient and encouraged him to wear CPAP at bedtime. The patient has no reported episodes of vomiting nor diarrhea. I called and discussed the case with the patient's daughter, Tyra, and findings on MRI were consistent with cerebrovascular disease and an old CVA. The patient has been afebrile. His blood pressure has been in a good range. No other concerns voiced at this time. REVIEW OF SYSTEMS: Full review of systems cannot be appreciated given the patient's mental status. MEDICATIONS: Medications have been reviewed. OBJECTIVE: GENERAL: The patient is a 71-year-old male who will awaken, but does have daytime sleepiness. He does not appear to be distressed. VITAL SIGNS: Temperature is 97.5, pulse 74, respirations 16, blood pressure 154/69, oxygen saturation is 91% on 3 L nasal cannula. SKIN: Warm and dry. No rash. She is not diaphoretic. HEENT: Pupils equal, round, and reactive to light and accommodation. Conjunctiva is pink. There is no evidence of JVP. CARDIOVASCULAR SYSTEM: Heart is regular. There is no murmur or rub. CHEST: Clear, symmetrical, unlabored. ABDOMEN: Soft, nontender, nondistended. BACK: No CVA tenderness or sacral edema. EXTREMITIES: No clubbing, cyanosis, edema. PSYCHIATRIC: The patient, at times, can be difficult to arouse. DIAGNOSTICS: Lab values are as follows: Hematology obtained on 05/14/2017: WBCs are 6.3, hemoglobin is 12.6, hematocrit is 37.5, platelet count is 170,000. Chemistry obtained on 05/14/2017: Sodium is 138, potassium 3.6, chloride is 102, carbon dioxide 26, BUN 18, creatinine is 0.72, glucose 171, calcium is 8.9. IMPRESSION AND PLAN: 1. BILATERAL COMMUNITY-ACQUIRED PNEUMONIA, MOST LIKELY STREPTOCOCCAL PNEUMONIA. The patient has completed 10 days of doxycycline and overall symptoms have appeared to resolve. No further congestion. Will follow. 2. ACUTE HYPOXEMIC RESPIRATORY FAILURE, MOST LIKELY AN ELEMENT OF CHRONICITY GIVEN THE SEVERITY OF THE PATIENT'S OBSTRUCTIVE SLEEP APNEA AND HIS EVER INCREASING DAYTIME SLEEPINESS. Will continue to supplement O2. 3. CEREBROVASCULAR DISEASE. Have maximized statin therapy. Will continue Plavix. 4. METABOLIC ENCEPHALOPATHY, MOST LIKELY SECONDARY TO ALL OF THE ABOVE; HOWEVER, THIS MAY POSSIBLY BE DUE TO THE PATIENT'S NEW BASELINE GIVEN HIS CEREBROVASCULAR DISEASE. THIS STROKE DOES APPEAR TO BE NEW IN COMPARISON TO PREVIOUS IMAGES. 5. HYPONATREMIA. This is resolved. 6. CHRONIC DIASTOLIC CHF. The patient appears to be optivolemic. 7. CHRONIC KIDNEY DISEASE STAGE 3. The patient's creatinine is back to baseline. 8. CORONARY ARTERY DISEASE. Will continue the patient's home medication. 9. DIABETES MELLITUS TYPE 2. Will continue the patient's home medication. 10. HYPERTENSION. Will continue home meds. DISPOSITION: The patient is a DNR/DNI. The patient can go to rehab as soon as a bed is available. Time spent on this followup including assessment, plan, physical examination, patient education, and family discussion is 35 minutes. DICTATING PHYSICIAN: DARRELL PALUMBO NP [id number] PHY#: [id number] ID: [id number] JOB#: [id number] ACCT: [id number] cc: >
[2017-05-15 15:50] LABS: ARTERIAL BLOOD BASE EXCESS 0.1 mmol/L; ARTERIAL BLOOD H2CO3 0.98 mmol/L (1.05-1.35); ARTERIAL BLOOD HCO3 23.1 mmol/L (20-26); ARTERIAL BLOOD PCO2 32.4 mmHg (35-45); ARTERIAL BLOOD PH 7.47 (7.35-7.45); ARTERIAL BLOOD PO2 60.7 mmHg (80-100)
[2017-05-15 15:51] LABS: VENOUS BLOOD BASE EXCESS 2.6 mmol/L; VENOUS BLOOD HCO3 25.9 mmol/L (20-32); VENOUS BLOOD PCO2 35.7 mmHg (35-63); VENOUS BLOOD PH 7.48 (7.30-7.42)
[2017-05-15 15:53] LABS: ARTERIAL BLOOD FIO2 4L
[2017-05-15] MEDS: TAMSULOSIN HCL 0.4 MG CAP.SR.24H PO SCH (17:47)
[2017-05-15] MEDS: ATORVASTATIN CALCIUM 40 MG TABLET PO SCH (22:20)
[2017-05-15] MEDS: TRAZODONE HCL 50 MG TABLET PO SCH (22:21)
[2017-05-15] MEDS: INSULIN GLARGINE,HUM.REC.ANLOG 300 UNIT/3 ML INSULN.PEN SUBCUT SCH (22:22)
[2017-05-16] MEDS: LORAZEPAM 1 MG TABLET PO PRN (01:33)
[2017-05-16] MEDS: HYDRALAZINE HCL 25 MG TABLET PO SCH ×2 (06:37→17:47)
[2017-05-16] MEDS: GUAIFENESIN 600 MG TABLET.SA PO SCH ×2 (10:16→21:35)
[2017-05-16] MEDS: INSULIN LISPRO 100 UNIT/ML 3 ML VIAL SUBCUT PRN ×3 (10:17→21:57)
[2017-05-16] MEDS: BISACODYL 5 MG TABEC PO SCH ×2 (10:17→17:46)
[2017-05-16] MEDS: CLOPIDOGREL BISULFATE 75 MG TABLET PO SCH (10:17)
[2017-05-16] MEDS: LACTOBACILLUS ACIDOPHILUS 250 MG TAB PO SCH ×2 (10:17→17:46)
[2017-05-16] MEDS: CARVEDILOL 6.25 MG TABLET PO SCH ×2 (10:17→21:34)
[2017-05-16] MEDS: ENOXAPARIN SODIUM INJ 40 MG/0.4 ML DISP.SYRIN SUBCUT SCH (10:17)
[2017-05-16] MEDS ORDERED: FUROSEMIDE INJ/PF 40 MG/4 ML SDV IV ONE (14:00)
[2017-05-16] MEDS ORDERED: POTASSIUM CHLORIDE 20 MEQ/15 ML UDCUP PO ONE (14:00)
--- NOTE | 2017-05-16 14:13 | TRANSFER SUMMARY E ---
Transfer Summary NAME: FABI FRANCISCO : 1945 AGE: 71Y ADMITTED: 05/05/2017 TRANSFERRED: 05/17/2017 CODE STATUS: DO NOT RESUSCITATE/DO NOT INTUBATE. RECEIVING FACILITY: [facility] in [place]. DISCHARGE DIAGNOSES: Includes: 1. Streptococcal community-acquired pneumonia. 2. Obstructive sleep apnea with CPAP. 3. Acute on chronic hypoxemic respiratory failure. 4. Cerebrovascular disease with cerebrovascular accident. 5. Vascular dementia. 6. Metabolic encephalopathy, secondary to the above, which has improved. 7. Hyponatremia. 8. Chronic diastolic congestive heart failure. 9. Chronic kidney disease, stage III. 10. Coronary artery disease. 11. Diabetes mellitus, type 2. 12. Hypertension. DISCHARGE MEDICATIONS: Include: 1. Flomax 0.4 mg p.o. with dinner. 2. Xopenex 1.25 mg nebs q.6 hours p.r.n. shortness of breath. 3. Lantus 30 units subcutaneously q. hour of sleep. 4. Apresoline 25 mg p.o. q.12 hours. 5. Plavix 75 mg p.o. daily. 6. Coreg 25 mg p.o. q.12 hours. 7. Lipitor 40 mg p.o. q. hour of sleep. 8. Tylenol 650 mg p.o. q.4 hours p.r.n. 9. Trazodone 100 mg p.o. q. hour of sleep p.r.n. 10. Methotrexate 10 mg p.o. on Saturdays. 11. Glucophage 1 gram p.o. b.i.d. 12. Aspirin 81 mg p.o. daily. RESPIRATORY: The patient will be placed on CPAP at his previous home settings of 35% FiO2 with a PEEP of 12 at bedtime. Encourage incentive spirometry and flutter valve. The patient is O2 at 3 to 4 liters continuously. DIET: Pureed heart-healthy diabetic. ACTIVITY: As per rehab standard. DIAGNOSTICS: Lab values are as follows: Hematology obtained on 05/14/2017: WBCs are 6.3, hemoglobin is 12.6, hematocrit 37.5, platelet count is 170,000. Coagulation obtained on 05/03/2017: PT is 13.7, INR is 0.98. ABG obtained on 05/15/2017 reveals a pH of 7.47, pCO2 is 32.4, pO2 is 60, bicarb is 23. Chemistry obtained on 05/14/2017: Sodium is 138, potassium 3.6, chloride is 102, carbon dioxide is 26, BUN 18, creatinine is 0.72, glucose 171, lactic acid is 1.2. Calcium is 8.9. Magnesium is 1.8. Phosphorus of 5.1. Bilirubin 0.3, AST 25, ALT is 44, alk phos 67. CK 323. Total protein 5.4, albumin 3.0, triglycerides are 324. Cholesterol 176, LDL 111, VLDL is 64, HDL is 23. B12 is 314. TSH is 1.13. CK-MB is 8.12. Troponin is 0.012. BMP is 203. Ammonia is 8.7. Urinalysis obtained on 05/09/2017: Color yellow, appears cloudy. Specific gravity 1.024, protein 30, glucose greater than 500, ketones 20, occult blood large, nitrite negative, bilirubin negative, urobilinogen negative, leukocyte esterase is negative, WBC 1, RBC 11, bacteria trace, epithelial squamous cells 1. Toxicology obtained on 05/03/2017: Toxic screen is rhodes negative. Serum alcohol obtained on 05/03/2017 is negative. Serologies obtained on 05/03/2017: RPR is nonreactive. Lyme disease panel obtained on 05/09/2017 is unremarkable. Microbiology: Blood cultures obtained on 05/03/2017 reveal Streptococcus viridans in only 1 bottle of 1 set. Urine culture obtained on 05/03/2017 reveals no growth. Blood cultures obtained on 05/06/[address] Head CT obtained on 05/03/2017 reveals no acute intracranial finding. Chest x-ray obtained on 05/03/2017 reveals patchy air space opacity is present in both lungs, left greater than right. Chest x-ray obtained on 05/05/2017 reveals bilateral trace pleural effusions with pulmonary vascular congestion, with possible consolidation in retrocardiac regions, atelectasis versus pneumonia. Chest x-ray obtained on 05/07/2017 reveals patchy left basilar air space disease. Head MRI obtained on 05/15/2017 reveals atrophy and chronic microvascular ischemic changes. Old infarct noted in the left occipital lobe. EKG obtained on 05/03/2017 reveals sinus rhythm with a right bundle branch block. EKG obtained on 05/05/2017 reveals sinus rhythm with a right bundle branch block. Echocardiogram obtained on 05/06/2017 reveals left ventricular ejection fraction is 60% with mild diastolic dysfunction. Carotid Doppler obtained on 05/16/2017 no stenosis. HISTORY OF PRESENT ILLNESS: The patient is a 71-year-old male with a past medical history of diabetes mellitus type 2, obstructive sleep apnea with only intermittent CPAP use. The patient presented to the emergency department secondary to fall. The patient has been having difficulty with his memory since , and apparently had been admitted at [facility], but signed himself out against medical advice at that time. The patient's history was obtained primarily from his daughter, who was present at the bedside, as she was out of town. The patient was unable to provide any history, as he was quite encephalopathic. The patient was found to have respiratory distress and evidence of bilateral pneumonia, and was referred to the hospital for admission and management. HOSPITAL COURSE: Patient was admitted to [facility]. The patient was treated with broad-spectrum antibiotic coverage and completed 10 days of IV antibiotics with improvement of his respiratory status. The patient was coughing and able to produce a good amount of sputum. The patient, at times, did require BiPAP, due to his respiratory status, and the patient is, at this point, oxygen-dependent, requiring 4 liters via nasal cannula. During the patient's stay, his mental status remained abnormal to him, as the patient's baseline is of reasonable function. The patient was MRI'd and findings were consistent with an occipital CVA. The patient was placed on statin therapy. Had an echocardiogram, as well as carotid Dopplers. The patient was already receiving Plavix therapy. An additional aspirin was added. The case was discussed with the patient's daughter, as there is also some underlying concern of some chronic hypoxia, as well, and the patient was felt to be a candidate for potential rehab. During the patient's stay, it became apparent he did have some urinary retention and did require a Hansen. The patient was started on Flomax. Hansen was removed and the patient has been able to void without issues. Post-void residuals have been minimal. PHYSICAL EXAMINATION: GENERAL: On examination, the patient is a frail, chronically ill-appearing 71-year-old male, who is awake, alert. He is oriented to name and will verbalize yes or no. Does not appear to be in distress. VITAL SIGNS: Temperature is 97.4, pulse 76, respirations 20, blood pressure 157/70. Oxygen saturation is 94% on 4 liters nasal cannula. SKIN: Warm and dry. No rashes. He is not diaphoretic. HEENT: Pupils equal, round and reactive to light and accommodation. Conjunctivae are pink. NECK: There is no evidence of JVP. CVS: Heart is regular. No murmur or rub. CHEST: Clear, symmetrical, unlabored. ABDOMEN: Soft, nontender, nondistended. BACK: No CVA tenderness or sacral edema. EXTREMITIES: Without clubbing, cyanosis or edema. PSYCHIATRIC: Unable to fully assess. DISCHARGE PLAN: 1. The patient will be received to the service of the longterm facility for rehabilitation. 2. Do recommend the patient be followed up by Neurology within 2 to 4 weeks for hospital followup. Time spent on this discharge, including assessment, plan, physical examination, patient education, discussion with family and resource alignment is 45 minutes. DICTATING PHYSICIAN: DARRELL PALUMBO NP [id number] PHY#: [id number] ID: [id number] JOB#: [id number] ACCT: [id number] cc:DARRELL PALUMBO NP > [facility]
[2017-05-16] MEDS ORDERED: HALOPERIDOL LACTATE INJ 5 MG/1 ML VIAL IM PRN (14:30)
[2017-05-16] MEDS ORDERED: HALOPERIDOL LACTATE INJ 5 MG/1 ML VIAL IM ONE (14:30)
--- NOTE | 2017-05-16 14:47 | RADIOLOGY REPORT (SQ) ---
EXAM DESCRIPTION: CAROTID DOPPLER COMPLETED DATE/TIME: 05/16/2017 2:30 pm REASON FOR STUDY: Cerebral vascular disease, prior to trans in am COMPARISON: 02/08/2016. TECHNIQUE: Grayscale ultrasound, Doppler velocity and spectra, and color Doppler images acquired of the extra-cranial carotid and vertebral arteries. Images stored on PACS. LIMITATIONS: None. FINDINGS: RIGHT CAROTID CCA Velocities: Within normal limits. ICA Velocities Peak systolic 0.72 m/s. End diastolic 0.14 m/s. Proximal ICA/CCA peak systolic ratio 1.0. Spectra normal. No significant plaque. LEFT CAROTID CCA Velocities: Within normal limits. ICA Velocities Peak systolic 0.67 m/s. End diastolic 0.08 m/s. Proximal ICA/CCA peak systolic ratio 0.8. Spectra normal. No significant plaque. VERTEBRAL ARTERIES: Antegrade flow. Normal waveforms. SUBCLAVIAN ARTERIES: No finding. OTHER: No other significant finding. IMPRESSION: NO HEMODYNAMICALLY SIGNIFICANT STENOSIS. COMMENT: Quality ID #[id number]: Velocity criteria are extrapolated from the diameter data as defined by t he Society of Radiologists in Ultrasound Consensus Conference. Radiology 2003: 229; 340-346. TECHNICAL DOCUMENTATION: JOB ID: [id number] [employer]- All Rights Reserved
[2017-05-16] MEDS: TAMSULOSIN HCL 0.4 MG CAP.SR.24H PO SCH (17:46)
[2017-05-16] MEDS: ATORVASTATIN CALCIUM 40 MG TABLET PO SCH (21:22)
[2017-05-16] MEDS: TRAZODONE HCL 50 MG TABLET PO SCH (21:34)
[2017-05-16] MEDS: INSULIN GLARGINE,HUM.REC.ANLOG 300 UNIT/3 ML INSULN.PEN SUBCUT SCH (21:56)
[2017-05-17] MEDS ORDERED: HALOPERIDOL LACTATE INJ 5 MG/1 ML VIAL IM ONE (05:00)
[2017-05-17] MEDS: HYDRALAZINE HCL 25 MG TABLET PO SCH (05:03)
[2017-05-17] MEDS: INSULIN LISPRO 100 UNIT/ML 3 ML VIAL SUBCUT PRN (05:19)
[2017-05-17 05:56] VITALS: BP 101/70
== END 2017-05-17 05:54 | DRG 193 ==
LOC: ER 20:00 → UNDOADMIN 23:25 → EH 23:25 → 3S 05-04 01:16 → EH 05-05 16:54 → ICU 05-05 17:20 → 3S 05-07 15:23
PROVIDERS: ADMIT Family Medicine; ATTEND Family Medicine
DX: J15.4 Pneumonia due to other streptococci (principal); G93.41 Metabolic encephalopathy; J96.21 Acute and chronic respiratory failure with hypoxia; C19 Malignant neoplasm of rectosigmoid junction; E87.1 Hypo-osmolality and hyponatremia; I13.0 Hypertensive heart and chronic kidney disease with heart failure and stage 1 through stage 4 chronic kidney disease, or unspecified chronic kidney disease; I50.32 Chronic diastolic (congestive) heart failure; M54.9 Dorsalgia, unspecified; Z66 Do not resuscitate; G62.9 Polyneuropathy, unspecified; E11.22 Type 2 diabetes mellitus with diabetic chronic kidney disease; E11.40 Type 2 diabetes mellitus with diabetic neuropathy, unspecified; N18.3 Chronic kidney disease, stage 3 (moderate); I67.9 Cerebrovascular disease, unspecified; F01.50 Vascular dementia, unspecified severity, without behavioral disturbance, psychotic disturbance, mood disturbance, and anxiety; E86.0 Dehydration; G47.33 Obstructive sleep apnea (adult) (pediatric); R41.82 Altered mental status, unspecified; L40.50 Arthropathic psoriasis, unspecified; Z95.5 Presence of coronary angioplasty implant and graft; Z79.01 Long term (current) use of anticoagulants; Z79.84 Long term (current) use of oral hypoglycemic drugs; Z79.899 Other long term (current) drug therapy; Z79.4 Long term (current) use of insulin; Z87.891 Personal history of nicotine dependence
CPT/HCPCS: 36415; 36600; 70450; 70551; 71010; 80048; 80053; 80061; 80202; 80307; 81001; 82140; 82550; 82553; 82565; 82607; 82803; 82962; 83605; 83735; 83880; 84100; 84443; 84484; 85025; 85027; 85610; 85730; 86592; 86617; 86618; 87040; 87077; 87086; 93005; 93010; 93306; 93880; 94640; 94660; 96365; 99285; J0360; J0692; J0696; J1200; J1630; J1650; J1815; J1940; J1956; J2060; J2185; J2270; J2405; J2920; J3370; J3490; J7030; J7040; J7060; J7620; S0028